=== PATIENT | female | born 1970 | race Two or more races ===

== ENCOUNTER → 2024-02-10 | Outpatient (CLI) | payer BC, OTHER, SELFPAY ==
[2024-02-10 08:38] LABS: Basophils # (Auto) 0.1 Thou/mm3 (0.0-0.2); Basophils % (Auto) 1 % (0-2.5); Eosinophils # (Auto) 0.2 Thou/mm3 (0.0-0.5); Eosinophils % (Auto) 3 % (0-10); Hematocrit 44.8 % (36.0-46.0); Hemoglobin 14.9 g/dL (12.0-16.0); Immature Granulocytes % (Auto) 0 % (0-0); Immature Granulocytes Auto 0.01 Thou/mm3 (0.00-0.00); Lymphocytes # (Auto) 2.1 Thou/mm3 (1.0-4.8); Lymphocytes % (Auto) 36 % (10-50); Mean Corpuscular HGB Conc 33.3 g/dl (31.0-37.0); Mean Corpuscular Hemoglobin 28.8 pg (25.0-35.0); Mean Corpuscular Volume 87 fL (80-100); Monocytes # (Auto) 0.5 Thou/mm3 (0.0-0.8); Monocytes % (Auto) 9 % (0-12); Neutrophils % (Auto) 51 % (37-80); Nucleated Red Blood Cell % 0 /100 WBC (0); Platelet Count 293 Thou/mm3 (140-440); RDW Standard Deviation 40.1 fL (36.4-46.3); Red Blood Count 5.17 Miln/mm3 (4.00-5.20); White Blood Count 5.9 Thou/mm3 (3.6-11.0)
[2024-02-10 08:43] LABS: Glucose Estimated Average 194 mg/dL (80-131); Hemoglobin A1C 8.4 % Hgb (4.8-6.0)
[2024-02-10 08:56] LABS: Alanine Aminotransferase 14 U/L (10-49); Albumin, Serum 4.9 gm/dL (3.5-5.0); Albumin/Globulin Ratio 1.9 (1.2-2.2); Alkaline Phosphatase 90 U/L (46-116); Anion Gap 7 (7-16); Aspartate Amino Transferase 15 U/L (0-34); BUN/Creatinine Ratio 35 Ratio (12-20); Bilirubin,Direct 0.3 mg/dL (0.0-0.3); Bilirubin,Total 0.8 mg/dL (0.3-1.2); Blood Urea Nitrogen 21 mg/dL (9-23); Carbon Dioxide 28.8 mMol/L (20.0-31.0); Cardiac Risk Estimate 2.4 RATIO (3.7-5.6); Chloride 104 mMol/L (98-107); Cholesterol 132 mg/dL (132-200); Creatinine (Component) 0.6 mg/dL (0.6-1.3); Globulin 2.6 gm/dL (2.3-3.5); Glucose 150 mg/dL (74-106); HDL Cholesterol 54 mg/dL (40-60); LDL Cholesterol,Calculated 61 mg/dL (0-130); Osmolality,Calculated 285 (275-295); Phosphorous 4.2 mg/dL (2.4-5.1); Potassium 4.3 mMol/L (3.4-5.1); Sodium 140 mMol/L (136-145); Total Protein 7.5 gm/dL (5.7-8.2); Triglycerides 86 mg/dL (30-150); eGFR > 60 See Note
[2024-02-10 17:16] LABS: Creatinine MALB Rnd Ur 65 mg/dL (30-125); Microalbumin, Random Urine < 3 mg/L (0-300)
== END | disposition home or self-care (01) ==
LOC: COPL 07:00
PROVIDERS: PCP Internal Medicine; Referring Provider Internal Medicine Endocrinology, Diabetes & Metabolism; Visit Provider Internal Medicine
DX: E11.65 Type 2 diabetes mellitus with hyperglycemia (principal); R06.02 Shortness of breath
CPT/HCPCS: 36415; 80053; 80061; 82043; 82248; 82570; 83036; 84100; 85025

== ENCOUNTER → 2024-10-16 | Outpatient (CLI) | payer OTHER, SELFPAY ==
[2024-10-16 08:55] LABS: Basophils # (Auto) 0.1 Thou/mm3 (0.0-0.2); Basophils % (Auto) 1 % (0-2.5); Eosinophils # (Auto) 0.1 Thou/mm3 (0.0-0.5); Eosinophils % (Auto) 2 % (0-10); Hematocrit 41.1 % (36.0-46.0); Hemoglobin 13.6 g/dL (12.0-16.0); Immature Granulocytes Auto 0.01 Thou/mm3 (0.00-0.00); Lymphocytes # (Auto) 2.1 Thou/mm3 (1.0-4.8); Lymphocytes % (Auto) 36 % (10-50); Mean Corpuscular HGB Conc 33.1 g/dl (31.0-37.0); Mean Corpuscular Hemoglobin 29.3 pg (25.0-35.0); Mean Corpuscular Volume 89 fL (80-100); Monocytes # (Auto) 0.5 Thou/mm3 (0.0-0.8); Monocytes % (Auto) 8 % (0-12); Neutrophils # (Auto) 3.1 Thou/mm3 (1.8-7.7); Neutrophils % (Auto) 54 % (37-80); Nucleated Red Blood Cell # 0.00 Thou/mm3 (0.00-0.00); Nucleated Red Blood Cell % 0 /100 WBC (0); Platelet Count 311 Thou/mm3 (140-440); RDW Standard Deviation 42.0 fL (36.4-46.3); Red Blood Count 4.64 Miln/mm3 (4.00-5.20); White Blood Count 5.8 Thou/mm3 (3.6-11.0)
[2024-10-16 09:01] LABS: Glucose Estimated Average 237 mg/dL (80-131); Hemoglobin A1C 9.9 % Hgb (4.8-6.0)
[2024-10-16 09:17] LABS: Alanine Aminotransferase 15 U/L (10-49); Albumin, Serum 4.2 gm/dL (3.5-5.0); Albumin/Globulin Ratio 1.7 (1.2-2.2); Alkaline Phosphatase 70 U/L (46-116); Anion Gap 11 (7-16); Aspartate Amino Transferase 16 U/L (0-34); BUN/Creatinine Ratio 19 Ratio (12-20); Bilirubin,Total 0.6 mg/dL (0.3-1.2); Blood Urea Nitrogen 13 mg/dL (9-23); Calcium 9.3 mg/dL (8.3-10.6); Calcium (Corrected) 9.3 mg/dL (8.5-10.1); Carbon Dioxide 27.2 mMol/L (20.0-31.0); Cardiac Risk Estimate 2.2 RATIO (3.7-5.6); Chloride 107 mMol/L (98-107); Cholesterol 118 mg/dL (132-200); Creatinine (Component) 0.7 mg/dL (0.6-1.3); Globulin 2.5 gm/dL (2.3-3.5); Glucose 142 mg/dL (74-106); HDL Cholesterol 54 mg/dL (40-60); LDL Cholesterol,Calculated 46 mg/dL (0-130); Osmolality,Calculated 290 (275-295); Potassium 4.5 mMol/L (3.4-5.1); Sodium 145 mMol/L (136-145); Thyroid Stimulating Hormone 1.51 uIU/mL (0.55-4.78); Total Protein 6.7 gm/dL (5.7-8.2); Triglycerides 91 mg/dL (30-150); Uric Acid 3.9 mg/dL (3.1-7.8); eGFR > 60 See Note
[2024-10-16 09:32] LABS: Vitamin B12 294 pg/mL (211-911); Vitamin D 25 Hydroxy Total 24.6 ng/mL (7.3-40.2)
== END | disposition home or self-care (01) ==
LOC: COPL 07:01
PROVIDERS: PCP Internal Medicine; Referring Provider Internal Medicine; Visit Provider Internal Medicine
DX: Z00.00 Encounter for general adult medical examination without abnormal findings (principal); E11.9 Type 2 diabetes mellitus without complications
CPT/HCPCS: 36415; 80053; 80061; 81001; 82306; 82607; 83036; 84443; 84550; 85025

== ENCOUNTER 2024-12-31 19:10 | Inpatient (IN) | payer OTHER, SELFPAY ==
[2024-12-31 19:11] VITALS: BMI 28.3
[2024-12-31 19:59] VITALS: BP 137/97; PULSE 118; RESP 20; TEMP 36.6; O2SAT 98
--- NOTE | 2024-12-31 20:10 | PD.EDRME ---
Rapid Medical Screening Exam RME Arrival date/time: 12/31/24 19:10 Chief Complaint: Abdominal Pain Time Seen by Provider: 12/31/24 19:29 Vital signs: Vital Signs Temperature 97.9 F 12/31/24 19:59 Pulse Rate 118 H 12/31/24 19:59 Respiratory Rate 20 12/31/24 19:59 Blood Pressure 137/97 H 12/31/24 19:59 Pulse Oximetry (%) 98 12/31/24 19:59 Oxygen Delivery Method Room Air 12/31/24 19:59 E Narrative: Nausea/vomiting and epigastric pain radiating to left back x 4 days
--- NOTE | 2024-12-31 20:19 | XR_ITS ---
EXAMINATION: AP chest single view TECHNIQUE: AP portable upright chest single view Date and time: December 31, 2024, 1025 hours, comparison May 21, 2022 INDICATIONS: Epigastric pain chest pain beginning 4 days ago. FINDINGS: Normal heart size. CABG. No pneumonia or pulmonary edema IMPRESSION: No active disease
--- NOTE | 2024-12-31 20:19 | XR_ITS ---
Examination: Abdomen sonogram, Limited Date and time of exam: December 31, 2024, 2218 hours INDICATIONS: Right upper abdominal pain and tenderness this week Technique: Real-time wallace scale transabdominal sonographic images of the upper abdomen obtained. Findings: Normal gallbladder. Normal common bile duct 0.5 cm Pancreatic head 2.1 cm Liver 12.9 cm fatty infiltration Normal hepatopetal portal venous Patent IVC IMPRESSION: Normal gallbladder
--- NOTE | 2024-12-31 20:19 | XR_ITS ---
Examination: CT abdomen and pelvis without contrast. Coronal 3-D reconstructions. Sagittal 2-D reconstructions. Date and time of exam:December 312028 hrs. Indications: Left-sided flank pain with nausea vomiting beginning today Comparison: July 31, 2015 CTDI: vol (mGy): 7.23 DLP: (mGycm): 397 Technique: Axial images of the abdomen have been obtained, 3 mm slice thickness Intravenous contrast material has not been administered. Low dose protocols were performed. One or more of the following dose reduction techniques were used; automated exposure control, adjustment of the mA and/or KV according to patient size, use of iterative reconstruction technique. Findings: No focal liver or splenic lesions No gallstones No pancreatic or adrenal mass No renal or ureteral calculi, no hydronephrosis Aorta normal size No bowel obstruction Normal appendix 3 cm left pelvic cyst Absent uterus Abundant stool in the rectum Contracted urinary bladder Impression: No renal or ureteral calculi, no hydronephrosis Normal appendix 3 cm left pelvic cyst, consider pelvic sonography follow-up Moderate degenerative disc disease L5-S1 with 2 mm central lumbar disc bulge
--- NOTE | 2024-12-31 20:19 | EKG_ITS ---
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
--- NOTE | 2024-12-31 20:24 | PD.EDABDPN ---
ED Abdominal Pain RME/HPI General Chief Complaint: Abdominal Pain Stated complaint: ABD PAIN N/V X 4 DAYS Time seen by provider: 12/31/24 19:29 Arrival date/time: 12/31/24 19:10 RME / HPI RME / HPI narrative: Nausea/vomiting and epigastric pain radiating to left back x 4 days See [facility] for Dr. Moore's HPI Documentation. Related Data Home Medications ?Medication ?Instructions ?Recorded ?Confirmed lisinopril 20 mg tablet 20 mg PO HS ##0 04/03/13 01/10/18 atorvastatin 40 mg tablet 40 mg PO HS ##30 12/28/14 01/10/18 carvedilol 3.125 mg tablet (Coreg) 3.125 mg PO BID #0 tabs 12/28/14 01/10/18 prasugrel HCl 10 mg tablet 10 mg PO QDAY #0 tabs 12/28/14 01/10/18 (Effient) metformin 850 mg tablet 850 mg PO BID #0 tabs 09/07/15 01/10/18 (Glucophage) aspirin 81 mg tablet,delayed 81 mg PO QDAY 01/10/18 01/10/18 release (Aspir-Low) dapagliflozin propanediol 10 mg 10 mg PO QAM 01/10/18 01/10/18 tablet (Farxiga) insulin glargine U-300 conc 300 50 unit subcut QDAY 01/10/18 01/10/18 unit/mL (3 mL) subcutaneous pen (Toujeo Max U-300 SoloStar) insulin glargine U-300 conc 300 50 unit subcut QDAY 02/26/18 unit/mL (3 mL) subcutaneous pen (Toujeo Max U-300 SoloStar) Allergies Allergy/AdvReac Type Severity Reaction Status Date / Time No Known Allergies Allergy Verified 05/21/22 16:07 Review of Systems Review of Systems Systems Reviewed: All systems reviewed, normal except as documented Past Medical History Past Medical History CARDIAC: Positive Hypercholesterolemia and Hypertension ENDOCRINE: Positive Diabetes Mellitus Type 2 Surgical History SURGICAL: Positive Coronary Stent ED Exam Narrative Physical exam: See [facility] for Dr. Moore's Physical Exam Documentation. Course Quality Measures none Orders Category Date Time Status Admit to Inpatient Status Routine Admission 12/31/24 22:41 Active Patient Condition Routine Admission 12/31/24 22:41 Ordered Bedside Blood Glucose Q1H Care 12/31/24 22:44 Active Bedside COVID-19 Antigen Test NOW Care 12/31/24 20:17 Active Bedside Influenza A&B Antigen Test NOW Care 12/31/24 20:17 Active COVID-19 Screening Questionnaire NOW Care 12/31/24 22:44 Active Summons Server Q4H Care 12/31/24 22:44 Active DKA Protocol QSHIFT Care 12/31/24 22:44 Active Decision to Admit X1 Care 12/31/24 22:44 Active EKG (ED ONLY) *Do not use* NOW Care 12/31/24 20:19 Completed Intake and Output Q1H Care 12/31/24 22:45 Ordered Intake and Output Q1H Care 12/31/24 23:45 Ordered NPO NOW Care 12/31/24 22:44 Active Notify provider NEEDED Care 12/31/24 22:41 Active Notify provider NEEDED Care 12/31/24 22:44 Active Saline [Insert IV] NOW Care 12/31/24 20:17 Active Referral Registered Dietitian Routine Cons 12/31/24 22:44 Active Diet NPO (NOW) Diet 12/31/24 22:[address] abdomen pelvis wo con Stat Exams 12/31/24 20:19 Completed EKG (ED Only) Stat Exams 12/31/24 20:19 Draft US gall bladder Stat Exams 12/31/24 20:19 Taken XR chest 1V portable Stat Exams 12/31/24 20:19 Taken Amylase Stat Lab 12/31/24 20:45 Completed Beta Hydroxybutyrate Stat Lab 12/31/24 20:45 Completed Bilirubin,Direct Stat Lab 12/31/24 20:45 Completed Blood Culture (Lab) Stat Lab 12/31/24 20:45 Received CBC Stat Lab 12/31/24 20:45 Completed CMP [Comprehensive Metabolic Panel] Stat Lab 12/31/24 20:45 Completed CRP [C-Reactive Protein] Stat Lab 12/31/24 20:45 Completed ESR [Sed Rate (ESR)] Stat Lab 12/31/24 20:45 Completed Glycohemoglobin w (eAG) AM DRAW Lab 01/01/25 05:00 Ordered Lactate (Lactic Acid) Q3H Lab 01/01/25 02:45 Ordered Lactate (Lactic Acid) Q3H Lab 01/01/25 05:45 Ordered Lactate (Lactic Acid) Stat Lab 12/31/24 20:45 Results Lipase Stat Lab 12/31/24 20:45 Completed Mag [Magnesium] Stat Lab 12/31/24 22:38 Ordered Magnesium Q4H Lab 01/01/25 02:45 Ordered Magnesium Q4H Lab 01/01/25 06:45 Ordered Magnesium Q4H Lab 01/01/25 10:45 Ordered Magnesium Q4H Lab 01/01/25 14:45 Ordered Magnesium Q4H Lab 01/01/25 18:45 Ordered Magnesium Q4H Lab 01/01/25 22:45 Ordered Magnesium Q4H Lab 01/02/25 02:45 Ordered Magnesium Q4H Lab 01/02/25 06:45 Ordered Magnesium Q4H Lab 01/02/25 10:45 Ordered Magnesium Q4H Lab 01/02/25 14:45 Ordered Magnesium Q4H Lab 01/02/25 18:45 Ordered Magnesium Q4H Lab 01/02/25 22:45 Ordered Magnesium Stat Lab 12/31/24 20:45 Completed Procalcitonin Stat Lab 12/31/24 20:45 Completed Renal Function Panel Q4 Lab 01/01/25 02:45 Ordered Renal Function Panel Q4 Lab 01/01/25 06:45 Ordered Renal Function Panel Q4 Lab 01/01/25 10:45 Ordered Renal Function Panel Q4 Lab 01/01/25 14:45 Ordered Renal Function Panel Q4 Lab 01/01/25 18:45 Ordered Renal Function Panel Q4 Lab 01/01/25 22:45 Ordered Renal Function Panel Q4 Lab 01/02/25 02:45 Ordered Renal Function Panel Q4 Lab 01/02/25 06:45 Ordered Renal Function Panel Q4 Lab 01/02/25 10:45 Ordered Renal Function Panel Q4 Lab 01/02/25 14:45 Ordered Renal Function Panel Q4 Lab 01/02/25 18:45 Ordered Renal Function Panel Q4 Lab 01/02/25 22:45 Ordered TSH [Thyroid Stimulating Hormone] Stat Lab 12/31/24 20:45 Completed Troponin I Stat Lab 12/31/24 20:45 Completed UA, C/S IF [Urinalysis, C/S if Indicated] Stat Lab 12/31/24 20:20 Ordered VBG [Venous Blood Gas] Stat Lab 12/31/24 21:10 Completed Acetaminophen Tab [Tylenol ES Tab] Med 12/31/24 22:51 Ordered 1,000 mg PO Q6H PRN Dextrose 5%-Lactated Ringers [D5-Lr] 1,000 ml Med 12/31/24 22:41 Active Pot Chl Additive [KCl Additive] 40 meq IV 250 mls/hr Dextrose 5%-Lactated Ringers [D5-Lr] 1,000 ml Med 12/31/24 22:41 Active IV 250 mls/hr Dextrose 50% Syr [D50w Syringe Abboject] Med 12/31/24 22:41 Active 25 ml IV PRNMRX1 PRN Enoxaparin [Lovenox] Med 01/01/25 21:00 Ordered 30 mg SC QPM Famotidine Inj [Pepcid Inj] Med 01/01/25 09:00 Ordered 20 mg IVP BID Famotidine Inj [Pepcid Inj] Med 12/31/24 20:17 Discontinued 20 mg IVP X1 ONE Insulin Reg 100 Units/100 ml [Myxredlin] Med 12/31/24 21:29 Active 100 unit in 100 ml IV 0.1 unit/kg/hr KCL 20 mEq/L in D5-LR Med 12/31/24 22:41 Active 20 meq in 1,000 ml IV 250 mls/hr Ketorolac Inj [Toradol Inj] Med 12/31/24 20:17 Discontinued 30 mg IVP X1 ONE Magnesium Sulfate 2 GM Ivpb [Magnesium Sulfate Ivpb] Med 12/31/24 22:41 Active 2 gm in 50 ml IV 25 mls/hr Morphine* Inj Med 12/31/24 20:17 Discontinued 4 mg IV X1 ONE Ondansetron Inj [Zofran Inj] Med 12/31/24 20:17 Discontinued 4 mg IVP X1 ONE POT PHOS 15 mMol in NS 250 ML [Pot Phos 15 mMol in NS Med 12/31/24 22:41 Active 250 ml] 15 mmol in 250 ml IV PRN POTASSIUM CHL 10 mEq IVPB [Kcl Ivpb] Med 12/31/24 22:41 Active 10 meq in 100 ml IV 100 mls/hr POTASSIUM CHL 10 mEq IVPB [Kcl Ivpb] Med 12/31/24 22:41 Active 10 meq in 100 ml IV PRN Pantoprazole Inj [Protonix Inj] Med 12/31/24 20:17 Discontinued 40 mg IVP X1 ONE Ringers Lactated 1000 ml [Lactated Ringers] 1,000 ml Med 12/31/24 22:41 Active Pot Chl Additive [KCl Additive] 20 meq IV 250 mls/hr Ringers Lactated 1000 ml [Lactated Ringers] 1,000 ml Med 12/31/24 22:41 Active Pot Chl Additive [KCl Additive] 40 meq IV 250 mls/hr Ringers Lactated 1000 ml [Lactated Ringers] 1,000 ml Med 12/31/24 22:41 Active IV 250 mls/hr Sodium Bicarb 8.4% SYR Med 12/31/24 22:41 Active 50 ml IV Q4HR PRN Sodium Chloride 0.9% 1000 ml [Ns] 1,000 ml Med 12/31/24 20:17 Discontinued IV 999 mls/hr Sodium Chloride 0.9% 1000 ml [Ns] 1,000 ml Med 12/31/24 20:18 Discontinued IV 999 mls/hr Sodium Chloride 0.9% 250 ml [Ns] 250 ml Med 12/31/24 22:41 Active Sod Phos Additive [NaPhos Additive] 15 mmol IV 62.5 mls/hr Code Status Routine Oth 12/31/24 22:41 Ordered EKG (RT) Stat RT 12/31/24 22:41 Ordered Vital Signs Vital signs: Vital Signs Temperature 97.9 F 12/31/24 19:59 Pulse Rate 118 H 12/31/24 19:59 Respiratory Rate 20 12/31/24 19:59 Blood Pressure 137/97 H 12/31/24 19:59 Pulse Oximetry (%) 98 12/31/24 19:59 Oxygen Delivery Method Room Air 12/31/24 19:59 Abdominal Pain MDM MDM Narrative MDM Narrative:: This section includes all my notes and documentations, including HPI, PE, and ED course. Sarthak Moore MD HPI: 54 y/o female with Hx of HTN and DM and Cardiac Byspass and Hysterectomy presents with several days of worsening upper abdominal pain and vomiting and anorexia. No hematemesis or coffee-ground emesis. No rectal bleeding or tarry stools. No obvious fever. No hematuria or difficulty urinating. No other complaints. ROS: All negative except as documented in HPI. Physical Exam: General: Alert and oriented. In severe pain. Eyes: Conjunctivae and lids clear. ENT: No nasal congestion. Neck: Supple. Heart: Sinus tachycardia noted. Lungs: No respiratory distress. Good air movement. No rhonchi, wheezing, rales. Abdomen: Soft with lower abdominal tenderness. Normal bowel sounds. No distension. No rebound or guarding. Back: No CVA tenderness. Skin: Warm and dry. Neuro: Alert and oriented X 3. I reviewed all diagnostic test results: My interpretation of the EKG: Sinus tachycardia (106 bpm) with no ST-T changes. My interpretation of the chest x-ray is no acute findings. My review of the Abdomen/Pelvis CT report is NAD. My review of the Gallbladder US report is NAD. Blood tests and urine tests remarkable for WBC 12.2, ESR 41, pH 7.30, K 5.4, CO2 17.2, anion gap 24, Glu 330, lactic acid 4.0, and beta hydroxybutyrate 6.3. At this point, diagnoses include: DKA Treatment here included: Prior to diagnostic tests, patient was given IV fluid, Zofran, morphine, Toradol, Pepcid, and Protonix. With DKA diagnosis, insulin drip started. I discussed the case with our ICU team. About the presentation and exam and diagnostics and treatments here. And need of further care in the hospital. Will accept the patient. Sarthak Moore MD Patient data External records reviewed:: [facility] previous records (Reviewed prior ED records from 05/21/22. Patient was seen for Chest pain, non-cardiac.) Clinical information provided by:: patient Social determinants that could affect healthcare access:: none Patient has the following chronic illnesses:: Hypercholesterolemia, Hypertension, Diabetes Mellitus Type 2 How is presenting disease/condition affected by chronic disease/condition?: exacerbated by Evaluation data The following diagnostics were reviewed and interpreted by me:: lab results, radiology exam(s) and EKG tracing(s) (My interpretation of the EKG: Sinus tachycardia (106 bpm) with no ST-T changes. Sarthak Moore MD) Lab and/or radiology exams considered but not ordered:: None Interpretation Summary: I reviewed all diagnostic test results: My interpretation of the EKG: Sinus tachycardia (106 bpm) with no ST-T changes. My interpretation of the chest x-ray is no acute findings. My review of the Abdomen/Pelvis CT report is NAD. My review of the Gallbladder US report is NAD. Blood tests and urine tests remarkable for WBC 12.2, ESR 41, pH 7.30, K 5.4, CO2 17.2, anion gap 24, Glu 330, lactic acid 4.0, and beta hydroxybutyrate 6.3. Medications / Prescriptions Medications or Prescriptions considered but not ordered:: None Medication administrations:: Medication Administration History Acetaminophen (Acetaminophen 500 Mg Tablet) 1,000 mg PO Q6H PRN PRN Reason: fever >99.9 Stop: 01/30/25 22:59 Dextrose (Dextrose 50%-Water Inj 50 Ml Syringe) 25 ml IV PRNMRX1 PRN PRN Reason: Blood Sugar - Low Enoxaparin Sodium (Enoxaparin Sod Inj 30 Mg/0.3 Ml Syringe) 30 mg SC QPM ИРИНА Stop: 01/15/25 20:59 Famotidine (Famotidine Inj 10 Mg/Ml Vial 2 Ml) 20 mg IVP BID ИРИНА Stop: 01/31/25 08:59 Insulin Human Regular (Myxredlin) 100 unit in 100 mls @ 7.031 mls/hr IV .[id number] PRN; Protocol PRN Reason: PER PROTOCOL Stop: 01/30/25 21:28 Potassium Chloride (Kcl Ivpb) 10 meq in 100 mls @ 100 mls/hr IV .Q1H PRN PRN Reason: IF POTASSIUM LESS THAN 3.3 Stop: 01/30/25 22:40 Magnesium Sulfate (Magnesium Sulfate Ivpb) 2 gm in 50 mls @ 25 mls/hr IV .Q2H PRN PRN Reason: PER DKA PROTOCOL Stop: 01/30/25 22:40 Dextrose/Lactated Ringer's (D5-Lr) 1,000 mls @ 250 mls/hr IV .Q4H PRN PRN Reason: PER PROTOCOL Stop: 01/30/25 22:40 Lactated Ringer's (Lactated Ringers) 1,000 mls @ 250 mls/hr IV .Q4H PRN PRN Reason: PER PROTOCOL Stop: 01/01/25 22:40 Potassium Chloride 20 meq/ (Lactated Ringer's) 1,010 mls @ 250 mls/hr IV .Q4H3M PRN PRN Reason: K LEVEL 3.3 TO 5.3mM/L Stop: 01/30/25 22:40 Potassium Chloride 40 meq/ (Lactated Ringer's) 1,020 mls @ 250 mls/hr IV .Q4H5M PRN PRN Reason: K LEVEL < 3.3 mM/L Stop: 01/30/25 22:40 Potassium Chloride 40 meq/ (Dextrose/Lactated Ringer's) 1,020 mls @ 250 mls/hr IV .Q4H5M PRN PRN Reason: K LEVEL < 3.3mM/L Stop: 01/30/25 22:40 Potassium Cl/Dextrose/Lact Ringer's (Kcl 20 Meq/L In D5-Lr) 20 meq in 1,000 mls @ 250 mls/hr IV .Q4H PRN PRN Reason: K LEVEL 3.3 TO 5.3 mM/L Potassium Chloride (Kcl Ivpb) 10 meq in 100 mls @ 50 mls/hr IV PRN PRN PRN Reason: K LEVEL 3.3 to 5.3 & BG > 200 Stop: 01/30/25 22:40 Potassium Phosphate (Pot Phos 15 Mmol In Ns 250 Ml) 15 mmol in 250 mls @ 62.5 mls/hr IV PRN PRN PRN Reason: Phosphate <= 1mg/dL Stop: 01/30/25 22:40 Sodium Phosphate 15 mmol/ (Sodium Chloride) 255 mls @ 62.5 mls/hr IV .Q4H5M PRN PRN Reason: Phosphate <= 1mg/dL and K> than 5.3 Stop: 01/30/25 22:40 Sodium Bicarbonate (Sodium Bicarb Inj 8.4% Syr 50 Ml Syringe) 50 ml IV Q4HR PRN PRN Reason: For ph <= to 7.0 Stop: 01/30/25 22:40 Discontinued Medications Famotidine (Famotidine Inj 10 Mg/Ml Vial 2 Ml) 20 mg IVP X1 ONE Stop: 12/31/24 20:18 Last Admin: 12/31/24 21:40 Dose: 20 mg Documented By: Sodium Chloride (Ns) 1,000 mls @ 999 mls/hr IV .Q1H1M ONE Stop: 12/31/24 21:17 Last Admin: 12/31/24 21:38 Dose: 999 mls/hr Documented By: PATRICK Sodium Chloride (Ns) 1,000 mls @ 999 mls/hr IV .Q1H1M ONE Stop: 12/31/24 21:18 Last Admin: 12/31/24 21:39 Dose: 999 mls/hr Documented By: PATRICK Ketorolac Tromethamine (Ketorolac Inj 30 Mg/Ml Vial) 30 mg IVP X1 ONE Stop: 12/31/24 20:18 Last Admin: 12/31/24 21:40 Dose: 30 mg Documented By: PATRICK Morphine Sulfate (Morphine Sulf Inj 4 Mg/Ml Vial) 4 mg IV X1 ONE Stop: 12/31/24 20:18 Last Admin: 12/31/24 21:41 Dose: 4 mg Documented By: PATRICK Ondansetron HCl (Ondansetron Inj 2 Mg/Ml Inj 2 Ml) 4 mg IVP X1 ONE; Protocol Stop: 12/31/24 20:18 Last Admin: 12/31/24 21:40 Dose: 4 mg Documented By: PATRICK Pantoprazole Sodium (Pantoprazole Inj 40 Mg Vial) 40 mg IVP X1 ONE Stop: 12/31/24 20:18 Last Admin: 12/31/24 21:39 Dose: 40 mg Documented By: PATRICK Treatment here included: Prior to diagnostic tests, patient was given IV fluid, Zofran, morphine, Toradol, Pepcid, and Protonix. With DKA diagnosis, insulin drip started. Consultations Consultation(s) initiated? (list below): Yes Consultation #1 (Physician, Specialty, Details): I discussed the case with our ICU team. About the presentation and exam and diagnostics and treatments here. And need of further care in the hospital. Will accept the patient. Time: 22:37 Diagnosis Differential diagnosis abdominal pain: abdominal pain, calculus of kidney, diverticulitis, gastroenteritis, pancreatitis, small bowel obstruction and other (Gastritis, GERD, Viral Illness, DKA) Most likely diagnosis given after review of the tests above:: DKA Admission Indicated Admission indicated?: indicated Explain why admission is indicated or not indicated:: DKA Admission Request Was there a request for admission?: Yes Admission Attestation Admission request attestation: Discussed case with our ICU service regarding admission. Discussed patients ED course, exam findings, labs, and radiology results. Agreed to accept the patient for admission. Disposition Plan Disposition Plan: Admit Critical Care Time Critical Care Time Critical Care Time: Yes Total Critical Care Time (min.): 36 Attestation: Due to a high probability of clinically significant, life threatening deterioration, the patient required my highest level of preparedness to intervene emergently and I personally spent this critical care time directly and personally managing the patient. This critical care time included obtaining a history; examining the patient; ordering and review of studies; arranging urgent treatment with development of a management plan; evaluation of patient's response to treatment; frequent reassessment; and discussions with family and other providers. It was exclusive of separately billable procedures and treating other patients and teaching time. Sarthak Moore MD Discharge Plan Plan Patient Disposition: Admit Acute Care w/in Hospital Prescriptions/Referrals Prescriptions/Med Rec: No Action insulin glargine U-300 conc [Toujeo Max U-300 SoloStar] 300 unit/mL (3 mL) insulin pen 50 unit SC QDAY lisinopril 20 MG tablet 20 mg PO HS Qty: 0 carvedilol [Coreg] 3.125 MG tablet 3.125 mg PO BID Qty: 0 prasugrel HCl [Effient] 10 MG tablet 10 mg PO QDAY Qty: 0 atorvastatin 40 mg Tablet 40 mg PO HS Qty: 30 metformin [Glucophage] 850 MG tablet 850 mg PO BID Qty: 0 aspirin [Aspir-Low] 81 mg Tablet,Delayed Release (Dr/Ec) 81 mg PO QDAY dapagliflozin propanediol [Farxiga] 10 mg Tablet 10 mg PO QAM insulin glargine U-300 conc [Toujeo Max U-300 SoloStar] 300 unit/mL (3 mL) Insulin Pen 50 unit SUBCUT QDAY Referrals: Lebron Watts MD [Primary Care Provider, Nephrology] - In 1 week Problem List Clinical Impression: DKA (diabetic ketoacidosis) Patient/Caregiver Discharge Instructions Print Language: Sinhala Stand Alone Forms: Sridevi Award Info., Patient Portal Info Letter
[2024-12-31 21:02] LABS: Beta Hydroxybutyrate 6.3 mmol/L (<0.6)
[2024-12-31 21:06] LABS: Basophils # (Auto) 0.1 Thou/mm3 (0.0-0.2); Basophils % (Auto) 1 % (0-2.5); Eosinophils # (Auto) 0.0 Thou/mm3 (0.0-0.5); Eosinophils % (Auto) 0 % (0-10); Hematocrit 49.9 % (36.0-46.0); Hemoglobin 16.2 g/dL (12.0-16.0); Immature Granulocytes Auto 0.03 Thou/mm3 (0.00-0.00); Lymphocytes # (Auto) 1.7 Thou/mm3 (1.0-4.8); Lymphocytes % (Auto) 14 % (10-50); Mean Corpuscular HGB Conc 32.5 g/dl (31.0-37.0); Mean Corpuscular Hemoglobin 28.7 pg (25.0-35.0); Mean Corpuscular Volume 88 fL (80-100); Monocytes # (Auto) 0.5 Thou/mm3 (0.0-0.8); Monocytes % (Auto) 4 % (0-12); Neutrophils # (Auto) 9.9 Thou/mm3 (1.8-7.7); Neutrophils % (Auto) 81 % (37-80); Nucleated Red Blood Cell # 0.00 Thou/mm3 (0.00-0.00); Nucleated Red Blood Cell % 0 /100 WBC (0); Platelet Count 432 Thou/mm3 (140-440); RDW Standard Deviation 43.2 fL (36.4-46.3); Red Blood Count 5.65 Miln/mm3 (4.00-5.20); White Blood Count 12.2 Thou/mm3 (3.6-11.0)
[2024-12-31 21:09] LABS: Lactate (Lactic Acid) 4.0 mMol/L (0.4-2.0)
--- NOTE | 2024-12-31 21:14 | PC.RT ---
abg attemted x2 unable to obtain DR. Moore made aware and ordered a VBG.
[2024-12-31 21:15] LABS: Base Excess, Venous -9 (-3-3); O2 Saturation, Venous 59 % (96-97); PCO2, Venous 33 mmHg (36-56); PO2, Venous 33 mmHg (15-58); pH, Venous 7.30 (7.33-7.66)
[2024-12-31 21:18] LABS: Sed Rate (ESR) 41 mm/hr (0-30)
[2024-12-31 21:26] LABS: Alanine Aminotransferase 12 U/L (10-49); Albumin, Serum 5.2 gm/dL (3.5-5.0); Albumin/Globulin Ratio 1.5 (1.2-2.2); Alkaline Phosphatase 102 U/L (46-116); Amylase 61 U/L (30-118); Anion Gap 24 (7-16); Aspartate Amino Transferase 15 U/L (0-34); BUN/Creatinine Ratio 21 Ratio (12-20); Bilirubin,Direct 0.4 mg/dL (0.0-0.3); Bilirubin,Total 1.2 mg/dL (0.3-1.2); Blood Urea Nitrogen 27 mg/dL (9-23); C-Reactive Protein 1.0 mg/dL (0.0-0.9); Calcium 10.8 mg/dL (8.3-10.6); Calcium (Corrected) 10.8 mg/dL (8.5-10.1); Carbon Dioxide 17.2 mMol/L (20.0-31.0); Chloride 98 mMol/L (98-107); Creatinine (Component) 1.3 mg/dL (0.6-1.3); Estimated Creatinine Clearance 46.0 mL/min (>60); Globulin 3.4 gm/dL (2.3-3.5); Glucose 330 mg/dL (74-106); Lipase 27 U/L (12-53); Magnesium 1.9 mg/dL (1.6-2.6); Osmolality,Calculated 295 (275-295); Potassium 5.4 mMol/L (3.4-5.1); Procalcitonin 0.04 ng/ml (0.0-0.49); Sodium 139 mMol/L (136-145); Thyroid Stimulating Hormone 1.07 uIU/mL (0.55-4.78); Total Protein 8.6 gm/dL (5.7-8.2); Troponin I < 0.002 ng/mL (0.0-0.045); eGFR 49 See Note
[2024-12-31] MEDS: SODIUM CHLORIDE 0.9% 1000 ML 1,000 ML 999 ML IV ×2 (21:38→21:39)
[2024-12-31] MEDS: ONDANSETRON INJ 2 MG/ML INJ 2 ML 4 MG IVP (21:40)
[2024-12-31] MEDS: FAMOTIDINE INJ 10 MG/ML VIAL 2 ML 20 MG IVP (21:40)
[2024-12-31] MEDS: KETOROLAC INJ 30 MG/ML VIAL IVP (21:40)
[2024-12-31] MEDS: MORPHINE SULF INJ 4 MG/ML VIAL IV (21:41)
[2024-12-31 22:18] VITALS: BP 138/87; PULSE 108; RESP 17; TEMP 36.6; O2SAT 99
[2024-12-31 22:49] VITALS: PULSE 108
[2024-12-31 23:30] VITALS: BP 142/75; PULSE 108; RESP 16; O2SAT 96
[2024-12-31] MEDS: INSULIN REG 100 UNITS/100 ML 100 UNIT/100 ML BAG 7.031 UNIT IV (23:31)
--- NOTE | 2024-12-31 23:37 | ESHP_ITS ---
<Statement entered by Ryley Sinha MD - 01/01/25 16:11> I have discussed and was present for the essential components of the history, physical examination, diagnosis, and treatment plan with the resident. I agree with the patient's care as documented by the resident and amended herein by me. Ryley Sinha MD FACP. Documentation for date of: 12/31/24 HPI History of Present Illness History of present illness: Chief complaint: Nausea and multiple episodes of vomiting x 4 days HPI: Ms Nye is a 54 year old female with past medical history of type2 IDDM x16 years, gastroparesis, primary hypertension, hyperlipidemia, CAD s/p triple bypass in May 2022 and weight loss/DM optimization with Mounjaro, who was brought to the hospital on 12/31/2024 by after having intractable nausea and vomiting for the last 4 days. Patient has been on Mounjaro for the last 4 years, dose was recently increased from 7.5 to 10 mg 1 month ago. Patient did not tolerate the 10 mg dose and discontinued Mounjaro on her own 1 month ago, however attempting to restart again on 12/28/2023. Post injection, patient experienced significant nausea and multiple episodes of nonbilious nonbloody vomiting. Her last meal was on Tuesday morning, which she also vomited out. She has been unable to tolerate any solid food since , and has only been able to consume some chicken broth once or twice. She has a freestyle ruddy monitor, and endorses blood sugars 50?70 on the monitor throughout this period. She has history of hospitalization previously for DKA, however has never experienced severe side effects from Mounjaro. She usually tolerated Mounjaro very well up to 7.5 mg, however had serious GI side effects on increasing to 10 mg. She denies any fevers, other systemic symptoms, sick contacts or recent travel. In the ED, vitals showed sinus tachycardia 108 bpm. Fingerstick blood glucose 386 at 22:49. Initial laboratory workup remarkable for mild leukocytosis WBC 12.2, hemoconcentration Hb 16.2, hyperkalemia K5.4, hypercalcemia Ca 10.8, JORJE: Cr 1.3 (baseline 0.7) and GFR 49 (baseline >60). DKA workup showed blood glucose 330, anion gap 24, BHB 6.3, pH 7.3 on VBG, bicarb 17.2, CO2 33. Lactic acid noted to be 4.0 at 8:45 PM. On imaging, CT abdomen/pelvis remarkable for 3 cm left pelvic cyst, moderate L5-S1 degenerative disc disease and 2 mm central lumbar disc bulge. No renal calculi or hydronephrosis noted. Patient was admitted to ICU for the work-up and management of DKA in the setting of intractable nausea vomiting and poor oral intake. Medication list: DAPT - ASA + Plavix Atorvastatin 40 mg at bedtime Toujeo 45 units every morning Humalog sliding scale Metformin 850 mg twice daily Farxiga 10 mg every morning Carvedilol 3.125 twice daily Metoclopramide 10 mg as needed Past surgical history: Subtotal hysterectomy - 2008 CAD Hx of stents?2013, 2018 Right eye cataract surgery?2021 CABG - May, Allergies: NKFDA Social history: Marital?Status:? Tobacco?Use:?Denies ETOH?Use:?Socially Drug?Note:?Denies Social?History?Note:?Lives?at home with? Family history: Denies family history of cancers, strokes or sudden cardiac . Review of Systems Review of Systems Narrative Review of Systems: GENERAL: Denies fevers/chills, diaphoresis. HEENT: Denies headache or visual/hearing changes. Denies nasal discharge. NEURO: Denies unusual weakness or difficulty speaking. CARDIO: Denies chest pain, palpitations. PULM: Denies SOB, cough, wheezing. GI: Denies abdominal pain, endorses N/V x5 days, no C/D. Reports having BMs URO: Denies burning/itching/pain/urinary changes. [employer]: Denies menstrual changes, hot flashes. MSK/EXT/SKIN: Denies skeletal/muscle pain, changes in upper or lower extremities, itchiness, superficial skin chnages. PSYCH: Cooperative, pleasant mood & affect. The rest of the review of systems is otherwise negative. Exam Vital Signs Temp Pulse Resp BP Pulse Ox O2 Del Method 97.8 F 108 H 17 138/87 H 99 Room Air 12/31/24 22:18 12/31/24 22:49 12/31/24 22:18 12/31/24 22:18 12/31/24 22:18 12/31/24 22:18 Narrative Exam Constitutional Alert, oriented x3 and comfortable. Nauseous HEENT Vision grossly intact, PERRL. Patent nares. Trachea midline. Respiratory Midline scar on inspection, clear to auscultation bilaterally. Cardiovascular S1 and S2 audible, RRR. No murmurs or carotid bruit. No gross JVD. Abdominal Soft and BS + ; non tender to palpation in all quadrants. Genitourinary No bladder tenderness, no flank pain. Normal to palpation. Musculoskeletal Extremities tone within normal limits. No LE edema. Neurological CN II - XII grossly intact. Extremity motor and sensation grossly intact. Skin Warm, dry and intact. No apparent lesions. Psychiatric Patient has a good affect, is cooperative. Results: Labs 12/31/24 20:45 12/31/24 20:45 Labs: Short CBC 12/31/24 Range/Units 20:45 WBC 12.2 H (3.6-11.0) Thou/mm3 Hgb 16.2 H (12.0-16.0) g/dL Hct 49.9 H (36.0-46.0) % Plt Count 432 (140-440) Thou/mm3 BMP 12/31/24 20:45 Sodium 139 Potassium 5.4 H Chloride 98 Carbon Dioxide 17.2 L BUN 27 H Creatinine 1.3 Glucose 330 H Calcium 10.8 H Cardiac Enzymes 12/31/24 Range/Units 20:45 Troponin I < 0.002 (0.0-0.045) ng/mL Liver Function 12/31/24 Range/Units 20:45 Total Bilirubin 1.2 (0.3-1.2) mg/dL Direct Bilirubin 0.4 H (0.0-0.3) mg/dL AST 15 (0-34) U/L ALT 12 (10-49) U/L Alkaline Phosphatase 102 (46-116) U/L Albumin 5.2 H (3.5-5.0) gm/dL ABG Interpretation ABG results: 12/31/24 21:10 VBG pH 7.30 L VBG pCO2 33 L VBG pO2 33 VBG Base Excess -9 L Quality Measures Quality Measures none Medications Home Medications and Allergies Home Medications ?Medication ?Instructions ?Recorded ?Confirmed ?Type lisinopril 20 mg tablet 20 mg PO HS ##0 04/03/13 History atorvastatin 40 mg tablet 40 mg PO HS ##30 12/28/14 History carvedilol 3.125 mg tablet (Coreg) 3.125 mg PO BID #0 tabs 12/28/14 01/10/18 History prasugrel HCl 10 mg tablet 10 mg PO QDAY #0 tabs 12/2801/10/18 History (Effient) metformin 850 mg tablet 850 mg PO BID #0 tabs 01/10/18 History (Glucophage) aspirin 81 mg tablet,delayed 81 mg PO QDAY 01/10/18 History release (Aspir-Low) dapagliflozin propanediol 10 mg 10 mg PO QAM 01/10/18 01/10/18 History tablet (Farxiga) insulin glargine U-300 conc 300 50 unit subcut QDAY 01/10/18 History unit/mL (3 mL) subcutaneous pen (Toujeo Max U-300 SoloStar) insulin glargine U-300 conc 300 50 unit subcut QDAY History unit/mL (3 mL) subcutaneous pen (Toujeo Max U-300 SoloStar) Allergies Allergy/AdvReac Type Severity Reaction Status Date / Time No Known Allergies Allergy Verified 05/21/22 16:07 Visit Medications Acetaminophen (Acetaminophen 500 Mg Tablet) 1,000 mg PO Q6H PRN PRN Reason: fever >99.9 Stop: 01/30/25 22:59 Dextrose (Dextrose 50%-Water Inj 50 Ml Syringe) 25 ml IV [id number] PRN PRN Reason: Blood Sugar - Low Enoxaparin Sodium (Enoxaparin Sod Inj 40 Mg/0.4 Ml Syringe) 40 mg SC QPM ИРИНА Stop: 01/15/25 20:59 Famotidine (Famotidine Inj 10 Mg/Ml Vial 2 Ml) 20 mg IVP BID ИРИНА Stop: 01/31/25 08:59 Insulin Human Regular (Myxredlin) 100 unit in 100 mls @ 7.031 mls/hr IV .[id number] PRN; Protocol PRN Reason: PER PROTOCOL Stop: 01/30/25 21:28 Potassium Chloride (Kcl Ivpb) 10 meq in 100 mls @ 100 mls/hr IV .Q1H PRN PRN Reason: IF POTASSIUM LESS THAN 3.3 Stop: 01/30/25 22:40 Magnesium Sulfate (Magnesium Sulfate Ivpb) 2 gm in 50 mls @ 25 mls/hr IV .Q2H PRN PRN Reason: PER DKA PROTOCOL Stop: 01/30/25 22:40 Dextrose/Lactated Ringer's (D5-Lr) 1,000 mls @ 250 mls/hr IV .Q4H PRN PRN Reason: PER PROTOCOL Stop: 01/30/25 22:40 Lactated Ringer's (Lactated Ringers) 1,000 mls @ 250 mls/hr IV .Q4H PRN PRN Reason: PER PROTOCOL Stop: 01/01/25 22:40 Potassium Chloride 20 meq/ (Lactated Ringer's) 1,010 mls @ 250 mls/hr IV .Q4H3M PRN PRN Reason: K LEVEL 3.3 TO 5.3mM/L Stop: 01/30/25 22:40 Potassium Chloride 40 meq/ (Lactated Ringer's) 1,020 mls @ 250 mls/hr IV .Q4H5M PRN PRN Reason: K LEVEL < 3.3 mM/L Stop: 01/30/25 22:40 Potassium Chloride 40 meq/ (Dextrose/Lactated Ringer's) 1,020 mls @ 250 mls/hr IV .Q4H5M PRN PRN Reason: K LEVEL < 3.3mM/L Stop: 01/30/25 22:40 Potassium Cl/Dextrose/Lact Ringer's (Kcl 20 Meq/L In D5-Lr) 20 meq in 1,000 mls @ 250 mls/hr IV .Q4H PRN PRN Reason: K LEVEL 3.3 TO 5.3 mM/L Potassium Chloride (Kcl Ivpb) 10 meq in 100 mls @ 50 mls/hr IV PRN PRN PRN Reason: K LEVEL 3.3 to 5.3 & BG > 200 Stop: 01/30/25 22:40 Potassium Phosphate (Pot Phos 15 Mmol In Ns 250 Ml) 15 mmol in 250 mls @ 62.5 mls/hr IV PRN PRN PRN Reason: Phosphate <= 1mg/dL Stop: 01/30/25 22:40 Sodium Phosphate 15 mmol/ (Sodium Chloride) 255 mls @ 62.5 mls/hr IV .Q4H5M PRN PRN Reason: Phosphate <= 1mg/dL and K> than 5.3 Stop: 01/30/25 22:40 Sodium Bicarbonate (Sodium Bicarb Inj 8.4% Syr 50 Ml Syringe) 50 ml IV Q4HR PRN PRN Reason: For ph <= to 7.0 Stop: 01/30/25 22:40 Discontinued Medications Famotidine (Famotidine Inj 10 Mg/Ml Vial 2 Ml) 20 mg IVP X1 ONE Stop: 12/31/24 20:18 Last Admin: 12/31/24 21:40 Dose: 20 mg Sodium Chloride (Ns) 1,000 mls @ 999 mls/hr IV .Q1H1M ONE Stop: 12/31/24 21:17 Last Admin: 12/31/24 21:38 Dose: 999 mls/hr Sodium Chloride (Ns) 1,000 mls @ 999 mls/hr IV .Q1H1M ONE Stop: 12/31/24 21:18 Last Admin: 12/31/24 21:39 Dose: 999 mls/hr Ketorolac Tromethamine (Ketorolac Inj 30 Mg/Ml Vial) 30 mg IVP X1 ONE Stop: 12/31/24 20:18 Last Admin: 12/31/24 21:40 Dose: 30 mg Morphine Sulfate (Morphine Sulf Inj 4 Mg/Ml Vial) 4 mg IV X1 ONE Stop: 12/31/24 20:18 Last Admin: 12/31/24 21:41 Dose: 4 mg Ondansetron HCl (Ondansetron Inj 2 Mg/Ml Inj 2 Ml) 4 mg IVP X1 ONE; Protocol Stop: 12/31/24 20:18 Last Admin: 12/31/24 21:40 Dose: 4 mg Pantoprazole Sodium (Pantoprazole Inj 40 Mg Vial) 40 mg IVP X1 ONE Stop: 12/31/24 20:18 Last Admin: 12/31/24 21:39 Dose: 40 mg Assessment & Plan Plan Ms. Nye is a 54-year-old female who is admitted for DKA in the setting of intractable nausea vomiting, likely GI side effects from Mounjaro dose increase to 10 mg recently. NEURO No active problems CVS History of CAD s/p CABG in May 2022 Dx: - Patient is currently on DAPT at home: Aspirin 81 mg daily + Plavix 75 mg daily - Patient follows up with Dr. Quesada in outpatient for cardiac management Rx: - Get him to get echocardiogram if needed - Patient currently denies any cardiac symptoms. Please consult cardiology if needed. Primary HTN Sinus tachycardia Dx: - Home meds: Carvedilol 3.125 twice daily - SBP 140s and pulse 110s in the ED Rx: - IV labetalol 5 mg x 1 given overnight - Day team to resume carvedilol in the a.m. for blood pressure > 120/80 PULM No active problems. ENDO DKA Type 2 IDDM x 16 years Hx of Gastroparesis Dx: - Longstanding history of type 2 diabetes mellitus, insulin-dependent. Diagnosed in 1998 - Home meds: Toujeo 45 units every morning Humalog sliding scale Metformin 850 mg twice daily Farxiga 10 mg every morning - Patient is very compliant with medications. Has a [employer] ruddy monitor - Unable to tolerate oral intake over the last 4 days due to intractable nausea vomiting. Blood sugars trending 50?70 on monitor. - Fingerstick blood glucose in the ED 396, and blood glucose on CMP 330 - She has history of hospitalization previously for DKA, however has never experienced severe side effects from Mounjaro. She previously tolerated Mounjaro very well up to 7.5 mg, however had serious GI side effects on increasing to 10 mg. Rx: - Started on insulin per DKA protocol - Replete electrolytes as per DKA protocol - Continue IVF LR to 50 cc maintenance - Every hour blood sugar checks - Hypoglycemia protocol in place - HbA1c ordered for a.m. draw - Hold Farxiga and metformin for now - Day team to addition to SC insulin when safe to come off of insulin drip HLD Dx: - Patient takes atorvastatin 40 mg daily at home - Follows up with Dr. Chanel outpatient. Has been on statins long-term Rx: - AM draw lipid panel ordered. Day team to follow-up results GI/Hep Intractable vomiting Secondary to GLP-1 (Mounjaro) intolerance Dx: - Patient has been on Mounjaro for the last 4 years, dose was recently increased from 7.5 to 10 mg 1 month ago. Patient did not tolerate the 10 mg dose and discontinued Mounjaro on her own 1 month ago, however attempting to restart again on 12/28/2023. - Post injection, patient experienced significant nausea and multiple episodes of nonbilious nonbloody vomiting. Her last meal was on Tuesday morning, which she also vomited out. - She has been unable to tolerate any solid food since , and has only been able to consume some chicken broth once or twice. Rx: - As needed Zofran 4 mg every 6 hours for N/V - EKG ordered to evaluate QTc - Patient may need to be discontinued off of Mounjaro on discharge, or dose reduced to 7.5 mg which is better tolerated. RENAL AGMA secondary to DKA and lactic acidosis - BHB 6.8, lactic acid 4 Rx: - Continue on DKA protocol - Repeat lactic acid check every 3 hours while on IV fluids JORJE Hyperkalemia Dx: - JORJE: Cr 1.3 (baseline 0.7) and GFR 49 (baseline >60) - K 5.4 (acute) - Also on Farxiga 10 mg every morning - Likely prerenal, due to poor oral intake over the last 4 days Rx: - Hold Farxiga until renal function improves - Anticipate improvement in RFT and K, as DKA gets treated with insulin and IV fluids - Repeat renal panel overnight to monitor trend HEME/ONC Leukocytosis Hemoconcentration Dx: - WBC 12.2, elevated Hb 16.2 - Likely in the setting of dehydration due to poor oral intake Rx: - Continue maintenance IVF at 250 cc/h - Leukocytosis likely reactive in the setting of acute DKA, continue to monitor with daily CBC - Elevated WBC could also possibly be due to gastroparesis. Last BM on Tuesday. Patient's normal is daily. Recommend giving laxative if WBC continues to uptrend. ID No active problems MSK/DERM No active problem ICU Health maintenance: Dispo: Admit to ICU for DKA Diet: N.p.o. w/ ice chips allowed DVT ppx: Enoxaparin 30 mg SC daily (renally dosed) GI ppx: Famotidine 20 mg twice daily IV lines: 2 pIV Central line: No Arterial line: No [place]: No Code status: FULL CODE Patient admitted with attending Dr Sinha, Vignesh Singh MD PGY 3 This document was compiled using speech recognition software. Grammatical errors can be an occasional consequence of this system due to software limitations.
[2024-12-31 23:44] VITALS: BP 142/75; PULSE 107; RESP 19; TEMP 37.4; O2SAT 97
[2024-12-31 23:54] LABS: Reflex Lactate? Y
[2024-12-31] MEDS: RINGERS LACTATED 1000 ML 1,000 ML 250 ML IV (23:56)
[2025-01-01] VITALS (33 sets, daily range): BP systolic 108–147; BP diastolic 56–93; PULSE 81–108; RESP 13–30; TEMP 35.9–36.8; O2SAT 93–99; BMI 27.5
[2025-01-01 00:11] LABS: Lactic Acid, 3 HR 2.4 mMol/L (0.4-2.0)
--- NOTE | 2025-01-01 02:24 | PRELIM_ITS ---
Right upper quadrant abdominal ultrasound with Limited Doppler. December 31, 2024 at 2218 hours Clinical history: RUQ tenderness, nausea and vomiting x4 days. No prior study is available for comparison. Findings: The liver demonstrates increase in echogenicity. No intrahepatic biliary ductal dilatation is demonstrated. The main portal vein is patent and demonstrates hepatopetal flow. No gallbladder calculus, wall thickening or pericholecystic fluid is demonstrated. The common bile duct is normal in caliber at 5 mm. The pancreas is unremarkable to the extent visualized. The abdominal aorta and inferior vena cava are not imaged/not demonstrated. Impression: No evidence of cholelithiasis, wall thickening, pericholecystic fluid or biliary dilatation. Fatty infiltration of the liver. Report Electronically Signed By: Sergey Luna 01/01/2025 2:24:20 AM [EST]
[2025-01-01] MEDS: DEXTROSE 5%-LACTATED RINGERS 1,000 ML 250 ML IV ×2 (02:47→07:26)
[2025-01-01 03:07] LABS: Lactate (Lactic Acid) 2.5 mMol/L (0.4-2.0)
[2025-01-01 03:43] LABS: Albumin, Serum 4.1 gm/dL (3.5-5.0); Anion Gap 14 (7-16); BUN/Creatinine Ratio 28 Ratio (12-20); Blood Urea Nitrogen 25 mg/dL (9-23); Calcium 8.9 mg/dL (8.3-10.6); Calcium (Corrected) 8.9 mg/dL (8.5-10.1); Carbon Dioxide 22.5 mMol/L (20.0-31.0); Chloride 109 mMol/L (98-107); Creatinine (Component) 0.9 mg/dL (0.6-1.3); Estimated Creatinine Clearance 66.4 mL/min (>60); Glucose 154 mg/dL (74-106); Magnesium 1.6 mg/dL (1.6-2.6); Osmolality,Calculated 296 (275-295); Phosphorous 3.4 mg/dL (2.4-5.1); Potassium 4.5 mMol/L (3.4-5.1); Sodium 145 mMol/L (136-145); eGFR > 60 See Note
[2025-01-01 04:04] LABS: Glucose Estimated Average 232 mg/dL (80-131); Hemoglobin A1C 9.7 % Hgb (4.8-6.0)
[2025-01-01] MEDS: Magnesium Sulfate 2 GM Ivpb 2 GM/50 ML BAG IV (04:20)
[2025-01-01] MEDS: POTASSIUM CHL 10 mEq IVPB 10 MEQ/100 ML BAG 50 MEQ IV ×2 (04:21→06:07)
[2025-01-01 06:04] LABS: Reflex Lactate? Y
[2025-01-01 06:11] LABS: Lactate (Lactic Acid) 1.3 mMol/L (0.4-2.0)
[2025-01-01 07:22] LABS: Albumin, Serum 3.7 gm/dL (3.5-5.0); Anion Gap 9 (7-16); BUN/Creatinine Ratio 24 Ratio (12-20); Blood Urea Nitrogen 22 mg/dL (9-23); Calcium 8.7 mg/dL (8.3-10.6); Calcium (Corrected) 8.9 mg/dL (8.5-10.1); Carbon Dioxide 24.6 mMol/L (20.0-31.0); Cardiac Risk Estimate 2.6 RATIO (3.7-5.6); Chloride 108 mMol/L (98-107); Cholesterol 115 mg/dL (132-200); Creatinine (Component) 0.9 mg/dL (0.6-1.3); Estimated Creatinine Clearance 66.4 mL/min (>60); Glucose 193 mg/dL (74-106); HDL Cholesterol 44 mg/dL (40-60); LDL Cholesterol,Calculated 56 mg/dL (0-130); Magnesium 2.8 mg/dL (1.6-2.6); Osmolality,Calculated 291 (275-295); Phosphorous 2.0 mg/dL (2.4-5.1); Potassium 4.0 mMol/L (3.4-5.1); Sodium 142 mMol/L (136-145); Triglycerides 74 mg/dL (30-150); eGFR > 60 See Note
[2025-01-01] MEDS: FAMOTIDINE INJ 10 MG/ML VIAL 2 ML 20 MG IVP ×2 (08:07→20:25)
[2025-01-01 08:41] LABS: Collection Type, Urine Clean Catch
[2025-01-01 08:56] LABS: Amorphous Crystals,Urine Present (Absent); Bacteria,Urine Rare; Bilirubin,Urine Negative (Negative); Blood,Urine Negative (Negative); Clarity,Urine Turbid (Clear/Hazy); Color,Urine Yellow (Lt Yel-Yel); Glucose, Urine 4+ (Negative); Ketones,Urine 3+ (Negative); Leukocyte Esterase,Urine Positive (Negative); Nitrite,Urine Negative (Negative); PH,Urine 6.0 (5.0-7.0); Protein,Urine Trace (Neg - Trace); RBC,Urine 2 /hpf (0-3); Specific Gravity,Urine 1.029 (1.001-1.035); Squamous Epithelial Cell,Urine 3 /hpf (0-5); Urobilinogen,Urine Negative mg/dL (0.0-1.0); WBC,Urine 20 /hpf (0-5)
[2025-01-01 08:59] LABS: Culture Indicated,Urine Yes
[2025-01-01] MEDS: POT CHL ADDITIVE 20 MEQ in DEXTROSE 5%-LACTATED RINGERS 1,000 ML 250 MEQ IV (09:02)
[2025-01-01 09:31] LABS: Base Excess, Venous -1 (-3-3); O2 Saturation, Venous 74 % (96-97); PCO2, Venous 34 mmHg (36-56); PO2, Venous 35 mmHg (15-58); pH, Venous 7.44 (7.33-7.66)
[2025-01-01 09:38] LABS: Basophils # (Auto) 0.0 Thou/mm3 (0.0-0.2); Basophils % (Auto) 0 % (0-2.5); Eosinophils # (Auto) 0.1 Thou/mm3 (0.0-0.5); Eosinophils % (Auto) 1 % (0-10); Hematocrit 35.7 % (36.0-46.0); Hemoglobin 11.9 g/dL (12.0-16.0); Immature Granulocytes Auto 0.01 Thou/mm3 (0.00-0.00); Lymphocytes # (Auto) 1.9 Thou/mm3 (1.0-4.8); Lymphocytes % (Auto) 23 % (10-50); Mean Corpuscular HGB Conc 33.3 g/dl (31.0-37.0); Mean Corpuscular Hemoglobin 29.2 pg (25.0-35.0); Mean Corpuscular Volume 88 fL (80-100); Monocytes # (Auto) 0.8 Thou/mm3 (0.0-0.8); Monocytes % (Auto) 10 % (0-12); Neutrophils # (Auto) 5.1 Thou/mm3 (1.8-7.7); Neutrophils % (Auto) 65 % (37-80); Nucleated Red Blood Cell # 0.00 Thou/mm3 (0.00-0.00); Nucleated Red Blood Cell % 0 /100 WBC (0); Platelet Count 328 Thou/mm3 (140-440); RDW Standard Deviation 41.8 fL (36.4-46.3); Red Blood Count 4.08 Miln/mm3 (4.00-5.20); White Blood Count 7.9 Thou/mm3 (3.6-11.0)
[2025-01-01] MEDS: INSULIN DEGLUDEC 5 UNIT/0.05 ML (PER 5 UNITS) 25 UNIT SC (09:50)
--- NOTE | 2025-01-01 10:28 | ESPR_ITS ---
<Statement entered by Foster Kim MD - 01/01/25 16:56> Patient seen and examined at bedside. I discussed and supervised with the dietary internship physician who took care of this patient. I personally saw and examined the patient. I agree with most of the assessment and plan. Patient was admitted with DKA. Patient blood sugar 386 at highest, consistently below 200, patient does take Farxiga at home. Patient received DKA protocol, with resolution of anion gap in the morning. Patient transition to 25 units long-acting subcutaneous insulin and insulin sliding scale, started on oral diet which patient tolerated well. Patient reported significant nausea, vomiting, decreased appetite after resuming Mounjaro at previous dose, symptoms have improved during stay. Patient stable for downgrade. Plan of care discussed with attending Dr. Suoza. Foster Kim MD PGY-2 Documentation for date of: 01/01/25 Subjective Subjective Interval history: HPI: Ms Nye is a 54 year old female with past medical history of type2 IDDM x16 years, gastroparesis, primary hypertension, hyperlipidemia, CAD s/p triple bypass in May 2022 and weight loss/DM optimization with Mounjaro, who was brought to the hospital on 12/31/2024 by after having intractable nausea and vomiting for the last 4 days. Patient has been on Mounjaro for the last 4 years, dose was recently increased from 7.5 to 10 mg 1 month ago. Patient did not tolerate the 10 mg dose and discontinued Mounjaro on her own 1 month ago, however attempting to restart again on 12/28/2023. Post injection, patient experienced significant nausea and multiple episodes of nonbilious nonbloody vomiting. Her last meal was on Tuesday morning, which she also vomited out. She has been unable to tolerate any solid food since , and has only been able to consume some chicken broth once or twice. She has a freestyle ruddy monitor, and endorses blood sugars 50?70 on the monitor throughout this period. She has history of hospitalization previously for DKA, however has never experienced severe side effects from Mounjaro. She usually tolerated Mounjaro very well up to 7.5 mg, however had serious GI side effects on increasing to 10 mg. She denies any fevers, other systemic symptoms, sick contacts or recent travel. In the ED, vitals showed sinus tachycardia 108 bpm. Fingerstick blood glucose 386 at 22:49. Initial laboratory workup remarkable for mild leukocytosis WBC 12.2, hemoconcentration Hb 16.2, hyperkalemia K5.4, hypercalcemia Ca 10.8, JORJE: Cr 1.3 (baseline 0.7) and GFR 49 (baseline >60). DKA workup showed blood glucose 330, anion gap 24, BHB 6.3, pH 7.3 on VBG, bicarb 17.2, CO2 33. Lactic acid noted to be 4.0 at 8:45 PM. On imaging, CT abdomen/pelvis remarkable for 3 cm left pelvic cyst, moderate L5-S1 degenerative disc disease and 2 mm central lumbar disc bulge. No renal calculi or hydronephrosis noted. Patient was admitted to ICU for the work-up and management of DKA in the setting of intractable nausea vomiting and poor oral intake. Medication list: DAPT - ASA + Plavix Atorvastatin 40 mg at bedtime Toujeo 45 units every morning Humalog sliding scale Metformin 850 mg twice daily Farxiga 10 mg every morning Carvedilol 3.125 twice daily Metoclopramide 10 mg as needed Past surgical history: Subtotal hysterectomy - 2008 CAD Hx of stents?2013, 2018 Right eye cataract surgery?2021 CABG - May, Allergies: NKFDA Social history: Marital?Status:? Tobacco?Use:?Denies ETOH?Use:?Socially Drug?Note:?Denies Social?History?Note:?Lives?at home with? Family history: Denies family history of cancers, strokes or sudden cardiac . Interval History 01/01/2025: Patient was seen and examined in the ICU with no acute overnight events noted. Patient states that she has been tolerating ice chips and denies any nausea or vomiting. Patient's vitals are currently stable and she reports no complaints or concerns. Patient has had minimal urine output and no bowel movements noted so far. This morning, patient was on insulin human regular ggt @ 0.05 unit/kg/hr dextrose/LR fluids 1L @250 mls/hr. Patient was just started on a carb consistent diet and was started on subcutaneous insulin of Degludec 25 units q day with planned to discontinue the insulin drip 1 hour after the subQ insulin is given. Glucose this morning on labs was 193; mag was 2.8; phos was 2.0. It is planned for the patient to be downgraded later today. Exam Vital Signs Temp Pulse Resp BP Pulse Ox O2 Del Method 96.6 F L 89 16 138/93 H 98 Room Air 01/01/25 08:00 01/01/25 10:00 01/01/25 10:00 01/01/25 10:00 01/01/25 10:00 01/01/25 08:00 Narrative Exam General: No acute distress; A&Ox3 Skin: Warm, dry, intact, no obvious rash. Midline Chest Scar HENT: NCAT, EOMI, not icteric. External ears normal. No rhinorrhea. Moist mucous membranes Cardiovascular: Regular rate and rhythm, no murmur, +S1/S2. Respiratory: Lungs CTAB GI: Soft, nontender, non-distended. No guarding or rebound tenderness. Extremities: no edema, no cyanosis, no clubbing. Extremity pulses present Neuro: No focal deficits observed. Conversant, moving all extremities. No overt cerebellar signs/incoordination. Psychiatric: Cooperative, appropriate affect. Objective Labs 01/01/25 09:20 01/01/25 10:54 Labs: Laboratory Results - last 24 hr 12/31/24 12/31/24 01/01/25 20:45 21:10 00:02 WBC 12.2 H RBC 5.65 H Hgb 16.2 H Hct 49.9 H MCV 88 MCH 28.7 MCHC 32.5 RDW Std Deviation 43.2 Plt Count 432 Neut % (Auto) 81 H Lymph % (Auto) 14 Gilliam % (Auto) 4 Eos % (Auto) 0 Baso % (Auto) 1 Neut # (Auto) 9.9 H Lymph # (Auto) 1.7 Gilliam # (Auto) 0.5 Eos # (Auto) 0.0 Baso # (Auto) 0.1 Immature Gran # (Auto) 0.03 H Absolute Nucleated RBC 0.00 Immature Gran % 0 Nucleated RBC % 0 ESR 41 H VBG pH 7.30 L VBG pCO2 33 L VBG pO2 33 VBG O2 Sat (Sanchez) 59 L VBG Base Excess -9 L Sodium 139 Potassium 5.4 H Chloride 98 Carbon Dioxide 17.2 L Anion Gap 24 H BUN 27 H Creatinine 1.3 Estim Creat Clear Calc 46.0 L eGFR 49 L BUN/Creatinine Ratio 21 H Glucose [address] Glu mg/dL Hemoglobin A1c Calculated Osmolality 295 Lactic Acid 4.0 H 2.4 H Calcium 10.8 H Corrected Calcium 10.8 H Phosphorus Magnesium 1.9 Total Bilirubin 1.2 Direct Bilirubin 0.4 H AST 15 ALT 12 Alkaline Phosphatase 102 Troponin I < 0.002 C-Reactive Prot, Quant 1.0 H Total Protein 8.6 H Albumin 5.2 H Globulin 3.4 Albumin/Globulin Ratio 1.5 Triglycerides Cholesterol LDL Cholesterol, Calc HDL Cholesterol Cholesterol/HDL Ratio Amylase 61 Lipase 27 Beta-Hydroxybutyrate/Acetoacetate 6.3 H Procalcitonin 0.04 TSH 1.07 Ur Collection Type Urine Color Urine Clarity Urine pH Ur Specific [place] Urine Protein Urine Glucose (UA) Urine Ketones Urine Blood Urine Nitrite Urine Bilirubin Urine Urobilinogen (Auto) Ur Leukocyte Esterase Urine RBC Urine WBC Ur Squamous Epith Cells Amorphous Crystals Urine Bacteria Ur Culture Indicated? 01/01/25 01/01/25 01/01/25 02:45 05:54 06:45 WBC RBC Hgb Hct MCV MCH MCHC RDW Std Deviation Plt Count Neut % (Auto) Lymph % (Auto) Gilliam % (Auto) Eos % (Auto) Baso % (Auto) Neut # (Auto) Lymph # (Auto) Gilliam # (Auto) Eos # (Auto) Baso # (Auto) Immature Gran # (Auto) Absolute Nucleated RBC Immature Gran % Nucleated RBC % ESR VBG pH VBG pCO2 VBG pO2 VBG O2 Sat (Sanchez) VBG Base Excess Sodium 145 142 Potassium 4.5 D 4.0 D Chloride 109 H 108 H Carbon Dioxide 22.5 24.6 Anion Gap 14 9 BUN 25 H 22 Creatinine 0.9 0.9 Estim Creat Clear Calc 66.4 66.4 eGFR > 60 > 60 BUN/Creatinine Ratio 28 H 24 H Glucose 154 H D [address] Glu mg/dL 232 H Hemoglobin A1c 9.7 H Calculated Osmolality 296 H 291 Lactic Acid 2.5 H 1.3 Calcium 8.9 D 8.7 Corrected Calcium 8.9 D 8.9 Phosphorus 3.4 2.0 L Magnesium 1.6 2.8 H Total Bilirubin Direct Bilirubin AST ALT Alkaline Phosphatase Troponin I C-Reactive Prot, Quant Total Protein Albumin 4.1 D 3.7 Globulin Albumin/Globulin Ratio Triglycerides 74 Cholesterol 115 L LDL Cholesterol, Calc 56 HDL Cholesterol 44 Cholesterol/HDL Ratio 2.6 L Amylase Lipase Beta-Hydroxybutyrate/Acetoacetate Procalcitonin TSH Ur Collection Type Urine Color Urine Clarity Urine pH Ur Specific [place] Urine Protein Urine Glucose (UA) Urine Ketones Urine Blood Urine Nitrite Urine Bilirubin Urine Urobilinogen (Auto) Ur Leukocyte Esterase Urine RBC Urine WBC Ur Squamous Epith Cells Amorphous Crystals Urine Bacteria Ur Culture Indicated? 01/01/25 01/01/25 07:50 09:20 WBC 7.9 RBC 4.08 Hgb 11.9 L D Hct 35.7 L D MCV 88 MCH 29.2 MCHC 33.3 RDW Std Deviation 41.8 Plt Count 328 D Neut % (Auto) 65 Lymph % (Auto) 23 Gilliam % (Auto) 10 Eos % (Auto) 1 Baso % (Auto) 0 Neut # (Auto) 5.1 Lymph # (Auto) 1.9 Gilliam # (Auto) 0.8 Eos # (Auto) 0.1 Baso # (Auto) 0.0 Immature Gran # (Auto) 0.01 H Absolute Nucleated RBC 0.00 Immature Gran % 0 Nucleated RBC % 0 ESR VBG pH 7.44 VBG pCO2 34 L VBG pO2 35 VBG O2 Sat (Sanchez) 74 L VBG Base Excess -1 Sodium Potassium Chloride Carbon Dioxide Anion Gap BUN Creatinine Estim Creat Clear Calc eGFR BUN/Creatinine Ratio Glucose Estimated Ave Glu mg/dL Hemoglobin A1c Calculated Osmolality Lactic Acid Calcium Corrected Calcium Phosphorus Magnesium Total Bilirubin Direct Bilirubin AST ALT Alkaline Phosphatase Troponin I C-Reactive Prot, Quant Total Protein Albumin Globulin Albumin/Globulin Ratio Triglycerides Cholesterol LDL Cholesterol, Calc HDL Cholesterol Cholesterol/HDL Ratio Amylase Lipase Beta-Hydroxybutyrate/Acetoacetate Procalcitonin TSH Ur Collection Type Clean Catch Urine Color Yellow Urine Clarity Turbid A Urine pH 6.0 Ur Specific [place] 1.029 Urine Protein Trace Urine Glucose (UA) 4+ A Urine Ketones 3+ A Urine Blood Negative Urine Nitrite Negative Urine Bilirubin Negative Urine Urobilinogen (Auto) Negative Ur Leukocyte Esterase Positive Urine RBC 2 Urine WBC 20 H Ur Squamous Epith Cells 3 Amorphous Crystals Present A Urine Bacteria Rare Ur Culture Indicated? Yes ABG Interpretation ABG results: 12/31/24 01/01/25 21:10 09:20 VBG pH 7.30 L 7.44 VBG pCO2 33 L 34 L VBG pO2 33 35 VBG Base Excess -9 L -1 Quality Measures Quality Measures VTE prophylaxis Assessment & Plan Assessment Current Active Medications: Generic Name Dose Route Start Last Admin Trade Name Iam PRN Reason Stop Dose Admin Acetaminophen 1,000 mg 12/31/24 22:51 Acetaminophen 500 Mg Tablet PO 01/30/25 22:59 Q6H PRN fever >99.9 Dextrose 25 ml 12/31/24 22:41 Dextrose 50%-Water Inj 50 Ml Syringe IV [id number] PRN Blood Sugar - Low Dextrose 25 ml 01/01/25 09:28 Dextrose 50%-Water Inj 50 Ml Syringe IV 01/31/25 09:27 Q15MIN PRN BG 50-70 responsive npo pt Dextrose 50 ml 01/01/25 09:28 Dextrose 50%-Water Inj 50 Ml Syringe IV 01/31/25 09:27 Q15MIN PRN BG <50 OR BG <70 & pt unresponsive Enoxaparin Sodium 40 mg 01/01/25 21:00 Enoxaparin Sod Inj 40 Mg/0.4 Ml Syringe SC 01/15/25 20:59 QPM ИРИНА Famotidine 20 mg 01/01/25 09:00 01/01/25 08:07 Famotidine Inj 10 Mg/Ml Vial 2 Ml IVP 01/31/25 08:59 20 mg BID ИРИНА Administration Glucagon 1 mg 01/01/25 09:28 Glucagon Inj 1 Mg Vial IM Q15MIN PRN BG <70, and no IV access Insulin Human Regular 100 unit in 100 mls @ 7.031 mls/hr 12/31/24 21:29 01/01/25 09:00 Myxredlin IV 01/30/25 21:28 0.05 unit/kg/hr .[id number] PRN 3.515 mls/hr PER PROTOCOL Titration Protocol 0.1 UNIT/KG/HR Potassium Chloride 10 meq in 100 mls @ 100 mls/hr 12/31/24 22:41 Kcl Ivpb IV 01/30/25 22:40 .Q1H PRN IF POTASSIUM LESS THAN 3.3 Magnesium Sulfate 2 gm in 50 mls @ 25 mls/hr 12/31/24 22:41 01/01/25 08:00 Magnesium Sulfate Ivpb IV 01/30/25 22:40 Infused .Q2H PRN Infusion PER DKA PROTOCOL Dextrose/Lactated Ringer's 1,000 mls @ 250 mls/hr 12/31/24 22:41 01/01/25 08:00 D5-Lr IV 01/30/25 22:40 0 mls/hr .Q4H PRN Infusion PER PROTOCOL Lactated Ringer's 1,000 mls @ 250 mls/hr 12/31/24 22:41 01/01/25 08:00 Lactated Ringers IV 01/01/25 22:40 Infused .Q4H PRN Infusion PER PROTOCOL Potassium Chloride 20 meq/ 1,010 mls @ 250 mls/hr 12/31/24 22:41 Lactated Ringer's IV 01/30/25 22:40 .Q4H3M PRN K LEVEL 3.3 TO 5.3mM/L Potassium Chloride 40 meq/ 1,020 mls @ 250 mls/hr 12/31/24 22:41 Lactated Ringer's IV 01/30/25 22:40 .Q4H5M PRN K LEVEL < 3.3 mM/L Potassium Chloride 40 meq/ 1,020 mls @ 250 mls/hr 12/31/24 22:41 Dextrose/Lactated Ringer's IV 01/30/25 22:40 .Q4H5M PRN K LEVEL < 3.3mM/L Potassium Chloride 10 meq in 100 mls @ 50 mls/hr 12/31/24 22:41 01/01/25 09:00 Kcl Ivpb IV 01/30/25 22:40 Infused PRN PRN Infusion K LEVEL 3.3 to 5.3 & BG > 200 Potassium Phosphate 15 mmol in 250 mls @ 62.5 mls/hr 12/31/24 22:41 Pot Phos 15 Mmol In Ns 250 Ml IV 01/30/25 22:40 PRN PRN Phosphate <= 1mg/dL Sodium Phosphate 15 mmol/ 255 mls @ 62.5 mls/hr 12/31/24 22:41 Sodium Chloride IV 01/30/25 22:40 .Q4H5M PRN Phosphate <= 1mg/dL and K> than 5.3 Potassium Chloride 20 meq/ 1,010 mls @ 250 mls/hr 01/01/25 08:32 01/01/25 09:02 Dextrose/Lactated Ringer's IV 01/31/25 08:31 250 mls/hr .Q4H3M PRN Administration K LEVEL 3.3 TO 5.3 mM/L Influenza Virus Vaccine Quadrival 0.5 ml 01/01/25 12:00 Influenza Virus Quadrivalent 0.5 Ml Syringe IMi 01/01/25 12:01 .ONCE ONE Insulin Degludec 25 unit 01/02/25 09:00 Insulin Degludec 5 Unit/0.05 Ml (Per 5 Units) SC 02/01/25 08:59 QDAY ИРИНА Insulin Human Lispro 0 unit 01/01/25 11:30 Insulin Lispro (Admelog) 1 Unit/0.01 Ml Unit SC 01/31/25 11:29 AC ИРИНА Protocol Sodium Bicarbonate 50 ml 12/31/24 22:41 Sodium Bicarb Inj 8.4% Syr 50 Ml Syringe IV 01/30/25 22:40 Q4HR PRN For ph <= to 7.0 Plan Ms. Nye is a 54-year-old female who is admitted for DKA in the setting of intractable nausea vomiting, likely GI side effects from Mounjaro dose increase to 10 mg recently. NEURO No active problems CVS History of CAD s/p CABG in May 2022 Dx: - Patient is currently on DAPT at home: Aspirin 81 mg daily + Plavix 75 mg daily - Patient follows up with Dr. Quesada in outpatient for cardiac management Rx: - Restarted home Aspirin - Patient currently denies any cardiac symptoms. Please consult cardiology if needed. Primary HTN Sinus tachycardia Dx: - Home meds: Carvedilol 3.125 twice daily - Blood pressure Rx: - Restarted home Carvedilol PULM No active problems. ENDO DKA, resolved Type 2 IDDM x 16 years Hx of Gastroparesis Dx: - Longstanding history of type 2 diabetes mellitus, insulin-dependent. Diagnosed in 1998 - Home meds: Toujeo 45 units every morning Humalog sliding scale Metformin 850 mg twice daily Farxiga 10 mg every morning - Patient is very compliant with medications. Has a [employer] ruddy monitor - Unable to tolerate oral intake over the last 4 days due to intractable nausea vomiting. Blood sugars trending 50?70 on monitor. - Fingerstick blood glucose in the ED 396, and blood glucose on CMP 330 - She has history of hospitalization previously for DKA, however has never experienced severe side effects from Mounjaro. She previously tolerated Mounjaro very well up to 7.5 mg, however had serious GI side effects on increasing to 10 mg. -HbA1c 01/01/2025 9.7 Rx: - SC insulin 25 u q day - Patient started on carb consistent diet - q6hr blood sugar checks - Hypoglycemia protocol in place - Hold Farxiga and metformin for now - SC insulin 25 u q day HLD Dx: - Patient takes atorvastatin 40 mg daily at home - Follows up with Dr. Chanel outpatient. Has been on statins long-term - Lipids drawn this admission unremarkable Rx: - Restarted home atorvastatin GI/Hep Intractable vomiting, resolved Secondary to GLP-1 (Mounjaro) intolerance Dx: - Patient has been on Mounjaro for the last 4 years, dose was recently increased from 7.5 to 10 mg 1 month ago. Patient did not tolerate the 10 mg dose and discontinued Mounjaro on her own 1 month ago, however attempting to restart again on 12/28/2023. - Post injection, patient experienced significant nausea and multiple episodes of nonbilious nonbloody vomiting. Her last meal was on Tuesday morning, which she also vomited out. - She has been unable to tolerate any solid food since , and has only been able to consume some chicken broth once or twice. - 01/01 Patient denies N/V Rx: - As needed Zofran 4 mg every 6 hours for N/V - Patient may need to be discontinued off of Mounjaro on discharge, or dose reduced to 7.5 mg which is better tolerated. RENAL AGMA 2/2 DKA and lactic acidosis , resolved - BHB 6.8, lactic acid 4 Rx: - Completed DKA protocol JORJE, resolved Hyperkalemia, resolved Dx: - JORJE: Cr 1.3 (baseline 0.7) and GFR 49 (baseline >60) on admission. Cr improved to 0.9. - K 5.4 (acute) -> 4.0 - Also on home Farxiga 10 mg every morning - Likely prerenal, due to poor oral intake over the last 4 days Rx: - Hold Farxiga until renal function improves - Anticipate improvement in RFT and K, as DKA gets treated with insulin and IV fluids - Repeat renal panel overnight to monitor trend HEME/ONC #Normocytic anemia Dx: Hb 16.2 -> 11.9 - Likely dilutional, no longer on fluids. - Diet started. ID No active problems MSK/DERM No active problem ICU Health maintenance: Dispo: ICU, planned to downgrade 01/01 Diet: Carb consistent DVT ppx: Enoxaparin 30 mg SC daily (renally dosed) GI ppx: Famotidine 20 mg twice daily IV lines: 2 pIV Central line: No Arterial line: No [place]: No Code status: FULL CODE Patient plan of care was discussed with the attending physician, Dr. Souza & senior resident Dr. Beatriz CABALLERO PGY-1 Attending Provider Attestation/Addendum pt seen and examined with resident team. d/w residents. In brief this is a 54yo F admitted to the ICU overnight for DKA. She has had intractable n/v over the last several days and has not taken her regularly scheduled meds. Took mounjaro earlier in the week. States she nl gets nauseas with poor PO intake after her weekly mounjaro shot but this lasted longer than normal. She developed lethargy yesterday and was brought to the ER by family. In the ED she was found to be in DKA and started on insulin gtt and IVF with DKA protocol. This AM she is AAOx3, nl body habitus, oral mucosa dry, sclera anicteric, LCTAB, HRRR, no increase in WOB. no pedal edema, no mottling, no clubbing. Today her AG has closed x2. She will be started on subq lantus and SSI. Insulin gtt will be stopped. drop in h/h noted today however felt to be dilutional in nature. Once insulin gtt is stopped and pt is stable for a few hours can be downgraded. case d/w ICU Team labs, imaging, records reviewed ~38min required for eval, exam, review, intervention, discussion and formulation of POC for this pt with DKA
[2025-01-01 11:18] LABS: Albumin, Serum 4.1 gm/dL (3.5-5.0); Anion Gap 9 (7-16); BUN/Creatinine Ratio 24 Ratio (12-20); Blood Urea Nitrogen 19 mg/dL (9-23); Calcium 9.2 mg/dL (8.3-10.6); Calcium (Corrected) 9.2 mg/dL (8.5-10.1); Carbon Dioxide 23.7 mMol/L (20.0-31.0); Chloride 108 mMol/L (98-107); Creatinine (Component) 0.8 mg/dL (0.6-1.3); Estimated Creatinine Clearance 73.4 mL/min (>60); Glucose 191 mg/dL (74-106); Magnesium 2.1 mg/dL (1.6-2.6); Osmolality,Calculated 288 (275-295); Phosphorous 1.1 mg/dL (2.4-5.1); Potassium 4.1 mMol/L (3.4-5.1); Sodium 141 mMol/L (136-145); eGFR > 60 See Note
[2025-01-01] MEDS: INSULIN LISPRO (AdmeLOG) 1 UNIT/0.01 ML UNIT SC (11:58)
--- NOTE | 2025-01-01 14:43 | ESPR_ITS ---
Documentation for date of: 01/01/25 Subjective Subjective Interval history: Ms. Nye is a 54-year-old female with a history of type 2 diabetes mellitus (insulin-dependent for 16 years), gastroparesis, primary hypertension, hyperlipidemia, and CAD s/p CABG in May 2022, who presented with intractable nausea and multiple episodes of non-bloody, non-bilious vomiting for four days after restarting Mounjaro 10 mg. She was previously tolerating the 7.5 mg dose but developed severe GI side effects upon dose increase. She was unable to tolerate oral intake, with glucose readings ranging from 330?386 mg/dL and labs showing anion gap 24, B-hydroxybutyrate 6.3, and pH 7.3, consistent with DKA. She was admitted to the ICU for insulin drip and IV fluids, with improvement in acidosis and symptoms. Downgraded from ICU 01/01/2025: Patient seen and examined today. No acute overnight events. She reports feeling significantly better, denies nausea, vomiting, abdominal pain, or shortness of breath. Tolerating ice chips and starting carb-consistent diet. No bowel movements yet, minimal urine output noted. She is currently transitioning off insulin drip to subcutaneous insulin (Degludec 25 units daily) with plan to discontinue drip one hour post administration. Vitals stable, afebrile. Denies chest pain, dizziness, or new symptoms. Exam Vital Signs Temp Pulse Resp BP Pulse Ox O2 Del Method 96.6 F L 88 18 127/64 97 Room Air 01/01/25 08:00 01/01/25 12:00 01/01/25 11:00 01/01/25 11:00 01/01/25 11:00 01/01/25 08:00 Narrative Exam General: A&O?3, in no acute distress HEENT: PERRLA, EOMI, no scleral icterus, moist mucous membranes Neck: No JVD, trachea midline Cardiac: Regular rate/rhythm, +S1/S2, no murmurs Pulmonary: Lungs clear bilaterally, no wheezes or crackles Abdomen: Soft, nontender, nondistended, normal bowel sounds Extremities: No cyanosis, clubbing, or edema Neuro: Alert, moves all extremities, no focal deficit Skin: Warm, dry, intact Psych: Cooperative, appropriate mood/affect Objective Labs 01/01/25 09:20 01/01/25 15:34 Labs: Laboratory Results - last 24 hr 12/31/24 12/31/24 01/01/25 20:45 21:10 00:02 WBC 12.2 H RBC 5.65 H Hgb 16.2 H Hct 49.9 H MCV 88 MCH 28.7 MCHC 32.5 RDW Std Deviation 43.2 Plt Count 432 Neut % (Auto) 81 H Lymph % (Auto) 14 Sargent % (Auto) 4 Eos % (Auto) 0 Baso % (Auto) 1 Neut # (Auto) 9.9 H Lymph # (Auto) 1.7 Sargent # (Auto) 0.5 Eos # (Auto) 0.0 Baso # (Auto) 0.1 Immature Gran # (Auto) 0.03 H Absolute Nucleated RBC 0.00 Immature Gran % 0 Nucleated RBC % 0 ESR 41 H VBG pH 7.30 L VBG pCO2 33 L VBG pO2 33 VBG O2 Sat (Sanchez) 59 L VBG Base Excess -9 L Sodium 139 Potassium 5.4 H Chloride 98 Carbon Dioxide 17.2 L Anion Gap 24 H BUN 27 H Creatinine 1.3 Estim Creat Clear Calc 46.0 L eGFR 49 L BUN/Creatinine Ratio 21 H Glucose [address] Glu mg/dL Hemoglobin A1c Calculated Osmolality 295 Lactic Acid 4.0 H 2.4 H Calcium 10.8 H Corrected Calcium 10.8 H Phosphorus Magnesium 1.9 Total Bilirubin 1.2 Direct Bilirubin 0.4 H AST 15 ALT 12 Alkaline Phosphatase 102 Troponin I < 0.002 C-Reactive Prot, Quant 1.0 H Total Protein 8.6 H Albumin 5.2 H Globulin 3.4 Albumin/Globulin Ratio 1.5 Triglycerides Cholesterol LDL Cholesterol, Calc HDL Cholesterol Cholesterol/HDL Ratio Amylase 61 Lipase 27 Beta-Hydroxybutyrate/Acetoacetate 6.3 H Procalcitonin 0.04 TSH 1.07 Ur Collection Type Urine Color Urine Clarity Urine pH Ur Specific Leblanc Urine Protein Urine Glucose (UA) Urine Ketones Urine Blood Urine Nitrite Urine Bilirubin Urine Urobilinogen (Auto) Ur Leukocyte Esterase Urine RBC Urine WBC Ur Squamous Epith Cells Amorphous Crystals Urine Bacteria Ur Culture Indicated? 01/01/25 01/01/25 01/01/25 02:45 05:54 06:45 WBC RBC Hgb Hct MCV MCH MCHC RDW Std Deviation Plt Count Neut % (Auto) Lymph % (Auto) Sargent % (Auto) Eos % (Auto) Baso % (Auto) Neut # (Auto) Lymph # (Auto) Sargent # (Auto) Eos # (Auto) Baso # (Auto) Immature Gran # (Auto) Absolute Nucleated RBC Immature Gran % Nucleated RBC % ESR VBG pH VBG pCO2 VBG pO2 VBG O2 Sat (Sanchez) VBG Base Excess Sodium 145 142 Potassium 4.5 D 4.0 D Chloride 109 H 108 H Carbon Dioxide 22.5 24.6 Anion Gap 14 9 BUN 25 H 22 Creatinine 0.9 0.9 Estim Creat Clear Calc 66.4 66.4 eGFR > 60 > 60 BUN/Creatinine Ratio 28 H 24 H Glucose 154 H D [address] Glu mg/dL 232 H Hemoglobin A1c 9.7 H Calculated Osmolality 296 H 291 Lactic Acid 2.5 H 1.3 Calcium 8.9 D 8.7 Corrected Calcium 8.9 D 8.9 Phosphorus 3.4 2.0 L Magnesium 1.6 2.8 H Total Bilirubin Direct Bilirubin AST ALT Alkaline Phosphatase Troponin I C-Reactive Prot, Quant Total Protein Albumin 4.1 D 3.7 Globulin Albumin/Globulin Ratio Triglycerides 74 Cholesterol 115 L LDL Cholesterol, Calc 56 HDL Cholesterol 44 Cholesterol/HDL Ratio 2.6 L Amylase Lipase Beta-Hydroxybutyrate/Acetoacetate Procalcitonin TSH Ur Collection Type Urine Color Urine Clarity Urine pH Ur Specific Leblanc Urine Protein Urine Glucose (UA) Urine Ketones Urine Blood Urine Nitrite Urine Bilirubin Urine Urobilinogen (Auto) Ur Leukocyte Esterase Urine RBC Urine WBC Ur Squamous Epith Cells Amorphous Crystals Urine Bacteria Ur Culture Indicated? 01/01/25 01/01/25 01/01/25 07:50 09:20 10:54 WBC 7.9 RBC 4.08 Hgb 11.9 L D Hct 35.7 L D MCV 88 MCH 29.2 MCHC 33.3 RDW Std Deviation 41.8 Plt Count 328 D Neut % (Auto) 65 Lymph % (Auto) 23 Sargent % (Auto) 10 Eos % (Auto) 1 Baso % (Auto) 0 Neut # (Auto) 5.1 Lymph # (Auto) 1.9 Sargent # (Auto) 0.8 Eos # (Auto) 0.1 Baso # (Auto) 0.0 Immature Gran # (Auto) 0.01 H Absolute Nucleated RBC 0.00 Immature Gran % 0 Nucleated RBC % 0 ESR VBG pH 7.44 VBG pCO2 34 L VBG pO2 35 VBG O2 Sat (Sanchez) 74 L VBG Base Excess -1 Sodium 141 Potassium 4.1 Chloride 108 H Carbon Dioxide 23.7 Anion Gap 9 BUN 19 Creatinine 0.8 Estim Creat Clear Calc 73.4 eGFR > 60 BUN/Creatinine Ratio 24 H Glucose [address] Glu mg/dL Hemoglobin A1c Calculated Osmolality 288 Lactic Acid Calcium 9.2 Corrected Calcium 9.2 Phosphorus 1.1 L Magnesium 2.1 Total Bilirubin Direct Bilirubin AST ALT Alkaline Phosphatase Troponin I C-Reactive Prot, Quant Total Protein Albumin 4.1 Globulin Albumin/Globulin Ratio Triglycerides Cholesterol LDL Cholesterol, Calc HDL Cholesterol Cholesterol/HDL Ratio Amylase Lipase Beta-Hydroxybutyrate/Acetoacetate Procalcitonin TSH Ur Collection Type Clean Catch Urine Color Yellow Urine Clarity Turbid A Urine pH 6.0 Ur Specific Leblanc 1.029 Urine Protein Trace Urine Glucose (UA) 4+ A Urine Ketones 3+ A Urine Blood Negative Urine Nitrite Negative Urine Bilirubin Negative Urine Urobilinogen (Auto) Negative Ur Leukocyte Esterase Positive Urine RBC 2 Urine WBC 20 H Ur Squamous Epith Cells 3 Amorphous Crystals Present A Urine Bacteria Rare Ur Culture Indicated? Yes ABG Interpretation ABG results: 12/31/24 01/01/25 21:10 09:20 VBG pH 7.30 L 7.44 VBG pCO2 33 L 34 L VBG pO2 33 35 VBG Base Excess -9 L -1 Quality Measures Quality Measures VTE prophylaxis Assessment & Plan Assessment Current Active Medications: Generic Name Dose Route Start Last Admin Trade Name Freq PRN Reason Stop Dose Admin Aspirin 81 mg 01/02/25 09:00 Aspirin Ec 81 Mg Tabec PO 02/01/25 08:59 QDAY ИРИНА Atorvastatin Calcium 40 mg 01/01/25 21:00 Atorvastatin Calcium 20 Mg Tablet PO 01/31/25 20:59 HS ИРИНА Carvedilol 3.125 mg 01/01/25 21:00 Carvedilol 3.125 Mg Tablet PO 01/31/25 20:59 BID РИИНА Dextrose 25 ml 12/31/24 22:41 Dextrose 50%-Water Inj 50 Ml Syringe IV [id number] PRN Blood Sugar - Low Dextrose 25 ml 01/01/25 09:28 Dextrose 50%-Water Inj 50 Ml Syringe IV 01/31/25 09:27 Q15MIN PRN BG 50-70 responsive npo pt Dextrose 50 ml 01/01/25 09:28 Dextrose 50%-Water Inj 50 Ml Syringe IV 01/31/25 09:27 Q15MIN PRN BG <50 OR BG <70 & pt unresponsive Enoxaparin Sodium 40 mg 01/01/25 21:00 Enoxaparin Sod Inj 40 Mg/0.4 Ml Syringe SC 01/15/25 20:59 QPM ИРИНА Famotidine 20 mg 01/01/25 09:00 01/01/25 08:07 Famotidine Inj 10 Mg/Ml Vial 2 Ml IVP 01/31/25 08:59 20 mg BID ИРИНА Administration Glucagon 1 mg 01/01/25 09:28 Glucagon Inj 1 Mg Vial IM Q15MIN PRN BG <70, and no IV access Insulin Degludec 25 unit 01/02/25 09:00 Insulin Degludec 5 Unit/0.05 Ml (Per 5 Units) SC 02/01/25 08:59 QDAY ИРИНА Insulin Human Lispro 0 unit 01/01/25 11:30 01/01/25 11:58 Insulin Lispro (Admelog) 1 Unit/0.01 Ml Unit SC 01/31/25 11:29 2 unit AC ИРИНА Administration Protocol Lisinopril 20 mg 01/01/25 21:00 Lisinopril 20 Mg Tablet PO 01/31/25 20:59 HS [facility] Plan 54-year-old female with long-standing IDDM, gastroparesis, and CAD s/p CABG, admitted for DKA secondary to poor intake from Mounjaro-induced intractable vomiting. Now improving and being downgraded from ICU. #Type 2 Diabetes Mellitus with Ketoacidosis, without coma Currently improving; transitioned off insulin drip. Plan: * Discontinue insulin drip 1 hr after Degludec administration * Continue carb-consistent diet as tolerated * Adjust sliding scale as needed * Hold metformin and Farxiga until discharge * Check BMP and AG daily * Continue LR at 50 mL/hr * Reinforce diabetic education prior to discharge # Gastroparesis secondary to diabetes Likely worsened by recent GLP-1 agonist (Mounjaro). Plan: * Continue PRN Zofran 4 mg q6h * Monitor oral tolerance * Avoid Mounjaro on discharge; consider returning to prior 7.5 mg dose outpatient if reinitiated * Encourage small, frequent, low-fat meals once diet advances # Coronary Artery Disease s/p CABG (May 2022) Stable, no current chest pain or ischemic symptoms. Plan: * Continue DAPT (ASA + Plavix) * Continue Atorvastatin 40 mg QHS * Resume Carvedilol 3.125 mg BID * Monitor vitals and telemetry * Outpatient follow-up with cardiology after DC # Acute Kidney Injury (Prerenal) Resolved with IV fluids; creatinine normalized. Plan: * Maintain hydration (LR 50 mL/hr) * Monitor BMP daily * Avoid nephrotoxins * Continue holding Farxiga #Metabolic Acidosis (Anion Gap) secondary to DKA Resolved; AG closed. Plan: * Continue monitoring metabolic panel q12h * Continue IV fluids until full oral tolerance # Hyperkalemia (resolved) Previously elevated to 5.4; now normalized. Plan: * Continue trending BMP * Reassess daily; replete if <3.5 # Normocytic Anemia Likely dilutional from IV hydration. Plan: * Monitor CBC daily * Transfuse if Hgb <7.0 # Hyperlipidemia Stable. Plan: * Continue Atorvastatin 40 mg nightly * Check lipid panel outpatient # Primary Hypertension Controlled on home regimen. Plan: * Continue Carvedilol 3.125 mg BID * Monitor BP and HR Health Maintenance Diet: Carb-consistent DVT Prophylaxis: Enoxaparin 30 mg SC daily (renally dosed) GI Prophylaxis: Famotidine 20 mg BID IVF: LR @ 50 mL/hr Code Status: Full Code Disposition: Stable for downgrade to medical floor; continue monitoring and transition to PO regimen ----- Plan discussed with attending physician Dr. Mac Ospina MD PGY-1 Internal Medicine Attending Provider Attestation/Addendum Patient seen and examined with resident physician Dr. Ospina. Note reviewed, agree with findings and recommendations. Patient currently seen in ICU. One of my primary patients. Admitted with DKA. Blood sugar tad better. Gap closed. Continue with fluids and insulin. Hold off on Mounjaro, Farxiga for now. Rest of the home medications will be reconciled. Replace electrolytes.
--- NOTE | 2025-01-01 15:31 | PC.SS ---
PIPE FITTER AMMONIA conducted bedside contact with the patient to conduct initial assessment and to discuss discharge planning.? Patient confirmed demographic information.? Patient resides at home with spouse, Jamie Nye .? Patient is retired.? Patient does not utilize any form of DME to assist with ambulation.? Patient does not utilize home oxygen.? Patient describes the ability to complete ADL?s independently.? Patient identified spouse, Jamie Nye; as medical surrogate decision maker.? Patient?s PCP is Dr. Watts.? Patient does not participate with dialysis.? Patient?s international organizer is Dr. Rivas.? Patient?s evaluation advisor is Lucio Jones.? Patient utilizes [facility] for medication services.? Patient possesses history of diabetes.? Plan is for the patient to return home at the time of discharge.? Family will provide transportation on behalf of the patient.? No further discharge needs identified by the patient.? No further intervention required at this time, psychotherapist social worker will be available to address any further concerns.? Next of Kin: Jamie Nye D/C Plan: Home
[2025-01-01 16:01] LABS: Albumin, Serum 3.7 gm/dL (3.5-5.0); Anion Gap 8 (7-16); BUN/Creatinine Ratio 16 Ratio (12-20); Blood Urea Nitrogen 13 mg/dL (9-23); Calcium 8.6 mg/dL (8.3-10.6); Calcium (Corrected) 8.8 mg/dL (8.5-10.1); Carbon Dioxide 23.9 mMol/L (20.0-31.0); Chloride 110 mMol/L (98-107); Creatinine (Component) 0.8 mg/dL (0.6-1.3); Estimated Creatinine Clearance 71.6 mL/min (>60); Glucose 165 mg/dL (74-106); Magnesium 2.1 mg/dL (1.6-2.6); Osmolality,Calculated 287 (275-295); Phosphorous 1.5 mg/dL (2.4-5.1); Potassium 3.9 mMol/L (3.4-5.1); Sodium 142 mMol/L (136-145); eGFR > 60 See Note
[2025-01-01 20:01] LABS: Albumin, Serum 3.8 gm/dL (3.5-5.0); Anion Gap 10 (7-16); BUN/Creatinine Ratio 19 Ratio (12-20); Blood Urea Nitrogen 13 mg/dL (9-23); Calcium 9.0 mg/dL (8.3-10.6); Calcium (Corrected) 9.2 mg/dL (8.5-10.1); Carbon Dioxide 24.1 mMol/L (20.0-31.0); Chloride 108 mMol/L (98-107); Creatinine (Component) 0.7 mg/dL (0.6-1.3); Estimated Creatinine Clearance 81.9 mL/min (>60); Glucose 170 mg/dL (74-106); Magnesium 1.9 mg/dL (1.6-2.6); Osmolality,Calculated 287 (275-295); Phosphorous 2.0 mg/dL (2.4-5.1); Potassium 4.3 mMol/L (3.4-5.1); Sodium 142 mMol/L (136-145); eGFR > 60 See Note
[2025-01-01] MEDS: ATORVASTATIN CALCIUM 20 MG TABLET 40 MG PO (20:24)
[2025-01-01] MEDS: ENOXAPARIN SOD INJ 40 MG/0.4 ML SYRINGE SC (20:25)
[2025-01-01 23:28] LABS: Albumin, Serum 3.7 gm/dL (3.5-5.0); Anion Gap 7 (7-16); BUN/Creatinine Ratio 20 Ratio (12-20); Blood Urea Nitrogen 14 mg/dL (9-23); Calcium 8.4 mg/dL (8.3-10.6); Calcium (Corrected) 8.6 mg/dL (8.5-10.1); Carbon Dioxide 26.2 mMol/L (20.0-31.0); Chloride 110 mMol/L (98-107); Creatinine (Component) 0.7 mg/dL (0.6-1.3); Estimated Creatinine Clearance 81.9 mL/min (>60); Glucose 211 mg/dL (74-106); Magnesium 2.1 mg/dL (1.6-2.6); Osmolality,Calculated 291 (275-295); Phosphorous 2.0 mg/dL (2.4-5.1); Potassium 3.8 mMol/L (3.4-5.1); Sodium 143 mMol/L (136-145); eGFR > 60 See Note
[2025-01-02] VITALS: BP 123/72; PULSE 77; PULSE 81; RESP 16; TEMP 36.7; O2SAT 96
[2025-01-02 03:49] LABS: Albumin, Serum 3.6 gm/dL (3.5-5.0); Anion Gap 7 (7-16); BUN/Creatinine Ratio 22 Ratio (12-20); Blood Urea Nitrogen 13 mg/dL (9-23); Calcium 8.3 mg/dL (8.3-10.6); Calcium (Corrected) 8.6 mg/dL (8.5-10.1); Carbon Dioxide 27.2 mMol/L (20.0-31.0); Chloride 111 mMol/L (98-107); Creatinine (Component) 0.6 mg/dL (0.6-1.3); Estimated Creatinine Clearance 95.5 mL/min (>60); Glucose 168 mg/dL (74-106); Magnesium 2.2 mg/dL (1.6-2.6); Osmolality,Calculated 292 (275-295); Phosphorous 2.3 mg/dL (2.4-5.1); Potassium 4.0 mMol/L (3.4-5.1); Sodium 145 mMol/L (136-145); eGFR > 60 See Note
[2025-01-02 04:00] VITALS: BP 124/70; PULSE 69; PULSE 70; RESP 16; TEMP 36.6; O2SAT 98
[2025-01-02 07:20] VITALS: BP 102/65; PULSE 77; RESP 14; TEMP 36.3; O2SAT 95
[2025-01-02] MEDS: INSULIN DEGLUDEC 5 UNIT/0.05 ML (PER 5 UNITS) 25 UNIT SC (07:25)
[2025-01-02] MEDS: INSULIN LISPRO (AdmeLOG) 1 UNIT/0.01 ML UNIT SC (07:25)
[2025-01-02 07:35] LABS: Albumin, Serum 3.6 gm/dL (3.5-5.0); Anion Gap 6 (7-16); BUN/Creatinine Ratio 23 Ratio (12-20); Blood Urea Nitrogen 14 mg/dL (9-23); Calcium 8.5 mg/dL (8.3-10.6); Calcium (Corrected) 8.8 mg/dL (8.5-10.1); Carbon Dioxide 27.4 mMol/L (20.0-31.0); Chloride 112 mMol/L (98-107); Creatinine (Component) 0.6 mg/dL (0.6-1.3); Estimated Creatinine Clearance 95.5 mL/min (>60); Glucose 153 mg/dL (74-106); Magnesium 2.2 mg/dL (1.6-2.6); Osmolality,Calculated 292 (275-295); Phosphorous 2.6 mg/dL (2.4-5.1); Potassium 4.1 mMol/L (3.4-5.1); Sodium 145 mMol/L (136-145); eGFR > 60 See Note
[2025-01-02 08:00] VITALS: PULSE 72
[2025-01-02 09:03] VITALS: BP 102/65; PULSE 77
[2025-01-02] MEDS: FAMOTIDINE INJ 10 MG/ML VIAL 2 ML 20 MG IVP (09:03)
[2025-01-02] MEDS: ASPIRIN EC 81 MG TABEC PO (09:03)
--- NOTE | 2025-01-02 10:16 | PC.SS ---
SS follow up note; Possible discharge home today.
--- NOTE | 2025-01-02 11:09 | PD.RESDS ---
Planned Discharge Date 01/02/25 DS: Providers Provider Date of admission: 12/31/24 22:41 Primary care physician: Lebron Wtats MD Admitting Provider: Ryley Sinha MD Attending Provider on Admission: Ryley Sinha MD Consults: 12/31/24 22:44 Referral Registered Dietitian Routine Comment: Attending Provider on DC: Lebron Watts MD Discharging Provider: Wilber Ospina MD DS: Diagnosis Problem List Completed Was Problem List Reviewed/Reconciled?: Yes Hospital Course Hospital Course Hospital course: 54-year-old female with a history of type 2 diabetes mellitus (insulin-dependent for 16 years), gastroparesis, hypertension, hyperlipidemia, and CAD s/p CABG (May 2022), who presented with 4 days of intractable nausea and vomiting after restarting Mounjaro 10 mg. She was previously tolerating the 7.5 mg dose but developed severe GI side effects at 10 mg. She was unable to tolerate oral intake, with glucose levels >300 mg/dL and findings consistent with DKA (anion gap 24, b-hydroxybutyrate 6.3, pH 7.3). She was admitted to the ICU and treated with IV fluids, insulin drip per DKA protocol, and electrolyte repletion. Her acidosis resolved, anion gap closed, and renal function normalized. The patient was gradually transitioned to subcutaneous insulin, tolerated a carb-consistent diet, and symptoms of nausea/vomiting resolved. She remained hemodynamically stable and was downgraded to the medical floor, where she continued to improve clinically. On the day of discharge, she is stable, tolerating diet, ambulating independently, and without complaints of nausea, vomiting, or abdominal pain. Diagnosis during admission: #Type 2 Diabetes Mellitus with Ketoacidosis, without coma (resolved) #Diabetic Gastroparesis #Coronary Artery Disease s/p CABG (May 2022) #Primary Hypertension #Hyperlipidemia Discharge instructions: -Continue home medications as listed. -Increase Toujeo to 54 units daily. -Stop Mounjaro. -Take Zofran 4 mg PO q8h PRN for nausea. -Follow a consistent carbohydrate, low-fat diet. -Monitor blood sugars daily and record readings. -Maintain good hydration. -Follow up with Dr. Zelaya (Endocrinology) in 1 week. -Follow up with PCP in 1 week. -Return to ED if nausea or vomiting recur and persist, or if glucose remains >300 mg/dL despite insulin. ----- Plan discussed with attending physician Dr. Mac Ospina MD PGY-1 Internal Medicine Status at Discharge Cognitive/behavioral status at discharge: Stable Functional status at discharge: independent ambulation Overall status at discharge: patient is back to baseline Time Spent with Patient Time attestation: Total time spent providing and/or coordinating discharge services: Time spent: Greater than 30 minutes Exam Vital Signs Temp Pulse Resp BP Pulse Ox O2 Del Method 97.3 F 77 14 102/65 95 Room Air 01/02/25 07:20 01/02/25 09:03 01/02/25 07:20 01/02/25 09:03 01/02/25 07:20 01/02/25 07:20 Narrative Exam General: Awake, alert, and oriented ?3, in no distress HEENT: No scleral icterus, mucous membranes moist Cardiac: Regular rate and rhythm, no murmurs Pulmonary: Clear to auscultation bilaterally Abdomen: Soft, non-tender, non-distended, normal bowel sounds Extremities: No edema, pulses palpable Neuro: No focal deficits Skin: Warm, dry, intact Discharge Plan Plan Patient Disposition: HOME (Self Care) Patient condition on transfer: Stable Care Plan Goals: -Follow a consistent carbohydrate, low-fat diet. -Monitor blood sugars closely with [facility] [place]; maintain log for review at follow-up. -Check fasting glucose daily and report persistent readings >250 mg/dL or <70 mg/dL. -Maintain adequate hydration. -Avoid restarting Mounjaro until reevaluated by endocrinology. -Follow-up with PCP and full time paramedic -Return to ED if nausea/vomiting recur and persist, unable to tolerate intake, or blood sugars remain >300 mg/dL despite insulin. -Please refer to the discharge instructions below for more detailed follow-up and care information. Prescriptions/Referrals Prescriptions/Med Rec: New insulin glargine U-300 conc [Toujeo Max U-300 SoloStar] 300 unit/mL (3 mL) insulin pen 54 unit subcut QDAY Qty: 6 0RF ondansetron HCl 4 mg tablet 4 mg PO Q8H PRN (Reason: nausea and vomiting) Qty: 30 0RF Continued lisinopril 20 MG tablet 20 mg PO HS Qty: 0 carvedilol [Coreg] 3.125 MG tablet 3.125 mg PO BID Qty: 0 prasugrel HCl [Effient] 10 MG tablet 10 mg PO QDAY Qty: 0 atorvastatin 40 mg Tablet 40 mg PO HS Qty: 30 aspirin [Aspir-Low] 81 mg Tablet,Delayed Release (Dr/Ec) 81 mg PO QDAY dapagliflozin propanediol [Farxiga] 10 mg Tablet 10 mg PO QAM Humalog KwikPen Insulin 1 unit subcut ACHS PRN (Reason: hyperglycemia) Rx Instructions: SLIDING SCALE INSULIN QAC Discontinued insulin glargine U-300 conc [Toujeo Max U-300 SoloStar] 300 unit/mL (3 mL) insulin pen 50 unit SC QDAY insulin glargine U-300 conc [Toujeo Max U-300 SoloStar] 300 unit/mL (3 mL) Insulin Pen 50 unit SUBCUT QDAY Mounjaro 10 mg/0.5 mL pen injector 10 mg subcut QWEEK No Action metformin [Glucophage] 850 MG tablet 850 mg PO BID Qty: 0 Referrals: Lebron Watts MD [Primary Care Provider, Nephrology] Patient/Caregiver Discharge Instructions Discharge Activity: activity as tolerated Other Discharge Activity Instructions:: Continue: -Aspirin 81 mg PO daily -Atorvastatin 40 mg PO nightly -Carvedilol (Coreg) 3.125 mg PO BID -Farxiga 10 mg PO daily -Lisinopril 20 mg PO daily -Effient (Prasugrel) 10 mg PO daily Change: -Toujeo: Increase to 54 units daily Stop: -Mounjaro (Tirzepatide) ? discontinued due to intolerance causing nausea and vomiting New: -Zofran (Ondansetron) 4 mg PO as needed for nausea/vomiting Follow-Up Appointments -Endocrinology (Dr. Zelaya): in 1 week -Primary Care Provider: in 1 week Education Materials: Diabetes and Heart Disease, Ketoacidosis Ch, Diabetic Ketoacidosis Print Language: Danish Stand Alone Forms: Sridevi Award Info., Patient Portal Info Letter Discharge Order Discharge Orders: Discharge (Routine); Ordered 01/02/25 Ordered By: Wilber Ospina Quality Discharge Quality Measures VTE prophylaxis Attestestation MD Attestation Patient seen and examined with resident physician Dr. Carroll. Note reviewed, agree with findings and recommendations. Admitted with DKA. Gap closed. Patient will be discharged on insulin. SOREN Mercado. Patient has an appointment with Dr. Zelaya in a.m.
[2025-01-02 11:25] VITALS: BP 111/71; PULSE 75; RESP 16; TEMP 36.4; O2SAT 96
[2025-01-02 11:26] LABS: Albumin, Serum 3.8 gm/dL (3.5-5.0); Anion Gap 7 (7-16); BUN/Creatinine Ratio 18 Ratio (12-20); Blood Urea Nitrogen 14 mg/dL (9-23); Calcium 8.6 mg/dL (8.3-10.6); Calcium (Corrected) 8.8 mg/dL (8.5-10.1); Carbon Dioxide 25.8 mMol/L (20.0-31.0); Chloride 111 mMol/L (98-107); Creatinine (Component) 0.8 mg/dL (0.6-1.3); Estimated Creatinine Clearance 71.6 mL/min (>60); Glucose 211 mg/dL (74-106); Magnesium 2.1 mg/dL (1.6-2.6); Osmolality,Calculated 293 (275-295); Phosphorous 2.1 mg/dL (2.4-5.1); Potassium 4.3 mMol/L (3.4-5.1); Sodium 144 mMol/L (136-145); eGFR > 60 See Note
== END 2025-01-02 11:55 | disposition home or self-care (01) | DRG 638 ==
LOC: SERX 22:45 → SERHOLD 23:00 → S2SX 01-01 00:11 → S3NX 01-02 11:02
PROVIDERS: Student in an Organized Health Care Education/Training Program; Admitting Provider Internal Medicine; Emergency Provider Emergency Medicine; PCP Internal Medicine; Visit Provider Internal Medicine
DX: E11.10 Type 2 diabetes mellitus with ketoacidosis without coma (principal); N17.9 Acute kidney failure, unspecified; D72.829 Elevated white blood cell count, unspecified; E87.5 Hyperkalemia; E86.0 Dehydration; E78.5 Hyperlipidemia, unspecified; I10 Essential (primary) hypertension; I25.10 Atherosclerotic heart disease of native coronary artery without angina pectoris; K31.84 Gastroparesis; Z79.4 Long term (current) use of insulin; Z95.1 Presence of aortocoronary bypass graft; E11.43 Type 2 diabetes mellitus with diabetic autonomic (poly)neuropathy; E83.52 Hypercalcemia; Z79.02 Long term (current) use of antithrombotics/antiplatelets; Z79.82 Long term (current) use of aspirin; Z79.84 Long term (current) use of oral hypoglycemic drugs; Z79.899 Other long term (current) drug therapy; Z90.710 Acquired absence of both cervix and uterus
CPT/HCPCS: 36415; 36600; 71045; 74176; 76705; 80053; 80061; 80069; 81001; 82010; 82150; 82248; 82803; 83036; 83605; 83690; 83735; 84145; 84443; 84484; 85025; 85652; 86140; 87040; 87081; 87086; 87186; 87400; 87811; 93005; 93225; 96361; 96374; 96375; 96376; 99284; J1650; J1815; J1885; J2270; J2405; J2470; J3475; J3480; J3490; J7030; J7120; J7121; A9270